=== PATIENT | female | born 1955 | race Caucasian/White ===

== ENCOUNTER 2023-07-09 09:01 | Outpatient (OUT) | payer MEDICARE, SELFPAY ==
[2023-07-09 09:24] LABS: Basophils Absolute Auto 0.1 10^3/uL (0.0-0.1); Basophils Percent Auto 0.7 % (0.2-2.0); Eosinophils Absolute Auto 0.2 10^3/uL (0.0-0.7); Eosinophils Percent Auto 3.1 % (0.9-7.0); Hematocrit 42.7 % (36.0-48.0); Hemoglobin 13.6 g/dL (12.0-16.0); Immature Granulocytes Abs Auto 0.02 10^3/uL (0.00-0.03); Immature Granulocytes Pct Auto 0.3 % (0.0-0.5); Lymphocytes Absolute Auto 1.4 10^3/uL (1.2-3.8); Lymphocytes Percent Auto 20.1 % (20.5-60.0); Mean Corpuscular HGB Conc 31.9 g/dL (29.9-35.2); Mean Corpuscular Hemoglobin 28.8 pg (26.7-34.0); Mean Corpuscular Volume 90.3 fL (81.0-99.0); Mean Platelet Volume 10.4 fL (9.5-13.5); Monocytes Absolute Auto 0.6 10^3/uL (0.3-0.8); Neutrophils Absolute Auto 4.7 10^3/uL (1.4-6.5); Neutrophils Percent Auto 66.8 % (43.0-75.0); Platelet Count 294 10^3/uL (150-450); Red Blood Count 4.73 10^6/uL (4.20-5.40); Red Cell Distribution Width 13.4 % (11.0-15.0)
[2023-07-09 09:47] LABS: Estimated Average Glucose 126 mg/dL
[2023-07-09 10:17] LABS: Alanine Aminotransferase 35 U/L (14-59); Albumin Globulin Ratio 0.8; Albumin Level 3.4 g/dL (3.4-5.0); Alkaline Phosphatase 80 U/L (46-116); Anion Gap 10.4; Aspartate Amino Transferase 21 U/L (15-37); Bilirubin Total 0.5 mg/dL (0.2-1.0); Calcium 9.3 mg/dL (8.5-10.1); Carbon Dioxide 30.3 mmol/L (21.0-32.0); Chloride 103 mmol/L (98-107); Chol HDL Ratio 4.2; Cholesterol 233 mg/dL (<=200); Estimated GFR (African America >60 (>=60); Estimated GFR (Non-African Ame 58 (>=60); Free T3 2.46 pg/mL (2.18-3.98); Globulin 4.2 g/dL; Glucose 130 mg/dL (74-106); HDL Cholesterol 55 mg/dL (40-60); Potassium 3.7 mmol/L (3.5-5.1); Sodium 140 mmol/L (136-145); Thyroid Stimulating Hormone 1.987 uIU/mL (0.358-3.740); Total Protein 7.6 g/dL (6.4-8.2); Triglycerides 108 mg/dL (<=150); VLDL CHOLESTEROL 21.6 mg/dL
[2023-07-10 11:10] LABS: Insulin 12.2 uIU/mL (2.6-24.9)
== END 2023-07-09 09:02 | disposition home or self-care (01) ==
PROVIDERS: PCP Nurse Practitioner Family; Visit Provider Nurse Practitioner Family
DX: R53.83 Other fatigue (principal); I10 Essential (primary) hypertension; E55.9 Vitamin D deficiency, unspecified
CPT/HCPCS: 36415; 80053; 80061; 82306; 83036; 83525; 83540; 84436; 84443; 84481; 85025

== ENCOUNTER 2023-10-29 12:28 | Outpatient (OUT) | payer MEDICARE, SELFPAY ==
--- NOTE | 2023-10-29 12:33 | XR_ITS ---
[facility] [place] [address] Patient Name: TOMASZ ELLIOTT MRN: [id number] date: 1955 Sex: F Assigned Patient Location: [facility] Current Patient Location: [facility] Accession/Order Number: [id number] Exam Date: 10/29/2023 12:40 Report Date: 10/29/2023 15:47 At the request of: JORGE DELONG Procedure: XR lumbar spine min 4V EXAMINATION: XR lumbar spine min 4V HISTORY: low back pain with right sided sciatica COMPARISON: No relevant comparison available. FINDINGS: BONES: Rotatory levoscoliosis centered at L2. Moderate to severe diffuse degenerative spondylosis and facet osteoarthropathy DISC SPACES: Moderate to severe multilevel disc space narrowing with disc collapse L2-L3 PARASPINOUS: Negative. No paraspinous abnormality is seen. OTHER: Extensive vascular calcifications XR/XR lumbar spine min 4V IMPRESSION: Rotatory levoscoliosis with severe degenerative changes Electronically authenticated by: KHUSHBU MACIEL Date: 10/29/2023 15:47
== END 2023-10-29 12:29 | disposition home or self-care (01) ==
LOC: RAD 12:28
PROVIDERS: PCP Nurse Practitioner; Visit Provider Nurse Practitioner
DX: M54.50 Low back pain, unspecified (principal); M54.31 Sciatica, right side; M51.36 Other intervertebral disc degeneration, lumbar region
CPT/HCPCS: 72110

== ENCOUNTER 2025-05-21 09:38 | Outpatient (OUT) | payer MEDICARE, OTHER, SELFPAY ==
--- OUTSIDE RECORDS SUMMARY | 2025-05-20 13:52 | XMS_ITS | Patient Health Record ---
Author Organization [facility] Address [address], [place] [id number] Care Team Providers Care Cotton Factor Name Role Phone macrina Dario Primary Care Provider [phone] Allergies Allergen (clinical drug ingredient) Drug/Non Drug Allergy documented on EMR Reaction Allergy Type Onset Date Status Latex latex (uncoded) rash Allergy ActivebacitracinBacitracinwelt/rashDrug AllergyActive Results Component Value Reference Range Flag Notes Hemoglobin [id number] Reviewed date:01/26/2025 07:27:03 AM Interpretation: Performing Lab:[facility], Phone - [phone], Director - Rosemarie Notes/Report: Clinical Information:SRC: Hemoglobin A1c 6.2 4.8-5.6 % H . Prediabetes: 5.7 - 6.4 Diabetes: >6.4 Glycemic control for adults with diabetes: <7.0 TSH-[id number] Reviewed date:01/26/2025 07:27:03 AM Interpretation: Performing Lab:[facility], Phone - [phone], Director - Rosemarie Notes/Report: Clinical Information:SRC: TSH 3.170 0.450-4.500 uIU/mL CBC With Differential/Platelet-[id number] Reviewed date:01/26/2025 07:27:03 AM Interpretation: Performing Lab:[employer] [facility], Phone - [phone], Director - Rosemarie Notes/Report: Clinical Information:SRC:WBC8.03.4-10.8 x10E3/uLRBC5.183.77-5.28 x10E6/uL Gfxwuyslyf65.811.1-15.9 g/mGPazsazhskk98.234.0-46.6 %ZXG7965-97 fLMCH28.626.6- 33.0 awKIRA27.031.5-35.7 g/dLRDW13.411.7-15.4 %Kshodnzip380358-193 x10E3/uL Rmukuqawdzq56Vfj Estab. %Bnptlg14Vja Estab. %Iyhjzepxf3Kvx Estab. %Vmt9Qnv Estab. %Kbhze0Gri Estab. %Neutrophils (Absolute)5.01.4-7.0 x10E3/uLLymphs (Absolute)1.80.7-3.1 x10E3/uLMonocytes(Absolute)0.70.1-0.9 x10E3/uLEos (Absolute)0.30.0-0.4 x10E3/uLBaso (Absolute)0.10.0-0.2 x10E3/uLImmature Akzvmtinmkkx2Cba Estab. %Immature Grans (Abs)0.00.0-0.1 x10E3/uLVitamin D, 17-Ihcvgpe-[id number] Reviewed date:01/26/2025 07:27:03 AM Interpretation: Performing Lab:[facility] [place] [address] [facility], Phone - [phone], Director - [facility] Notes/Report: Clinical Information:SRC:Vitamin D, 25-Qbnyagj31.030.0-100.0 ng/mLL Vitamin D deficiency has been defined by the Abbott of Medicine and an Endocrine Society practice guideline as a level of serum 25-OH vitamin D less than 20 ng/mL (1,2). The Endocrine Society went on to further define vitamin D insufficiency as a level between 21 and 29 ng/mL (2). 1. IOM (Abbott of Medicine). 2010. Dietary reference intakes for calcium and D. [place]: The National Academies Press. 2. Nakita MF, Paulino NC, Nohemi-Cedric FLOYD, et al. Evaluation, treatment, and prevention of vitamin D deficiency: an Endocrine Society clinical practice guideline. JCEM. 2010; 96(7):1911-30. Lipid Panel-[id number] Reviewed date:01/26/2025 07:27:03 AM Interpretation: Performing Lab:[facility] [address], [place], Phone - [phone], Director - [facility] Notes/Report: Clinical Information:SRC:Cholesterol, Ccfsd607473-513 mg/kWSTjsauspvbomcr1363- 149 mg/dLHHDL Hbdhlmfumww60>39 mg/dLVLDL Cholesterol Lfu715-86 mg/dLHLDL Chol Calc ([facility])2150-99 mg/dLHLDL Calc Comment: Consider evaluating for Familial Hypercholesterolemia(FH), if clinically indicated. Comp. Metabolic Panel ([id number] Reviewed date:01/26/2025 07:27:03 AM Interpretation: Performing Lab:[facility] [place], [address] [facility], [place], Phone - [phone], [facility] Notes/Report: Clinical Information:SRC:Fnewyjn25925-73 mg/gGZSYA725-88 mg/dLCreatinine0.83 0.57-1.00 mg/tOnLXD58>59 mL/min/1.73BUN/Creatinine Tewah0829-43Hxewwf179887-956 mmol/LPotassium4.53.5-5.2 mmol/CBalgzzxp11438-518 mmol/LCarbon Dioxide, Total25 20-29 mmol/LCalcium9.88.7-10.3 mg/dLProtein, Total7.06.0-8.5 g/dLAlbumin4.13.8- 4.8 g/dLGlobulin, Total2.91.5-4.5 g/dLBilirubin, Total0.40.0-1.2 mg/dLAlkaline Wrtqlxszbnh8581-918 IU/LAST (SGOT)240-40 IU/LALT (SGPT)310-32 IU/L Reason For Referral Reason colonoscopy Diagnosis 1 COLON CANCER SCREENI (Z12.11) Referral Organization [facility] Referring Provider First Name Dario Referring Provider Last Name Cola Referring Provider Speciality Physician Referred Provider [facility], [facility] Referred Provider Specialty Gastroentero logy Referral Priority Routine Medications Medication SIG (Take, Route, Frequency, Duration) Notes Start Date End Date Status metFORMIN HCl 500 MG Tablet 1 tablet wit h a meal Orally Once a day; Duration: 90 5ActiveLevothyroxine Sodium 88 MCG Tablet1 tablet in the morning on an empty stomach Orally Once a dayActiveAtorvastatin Calcium 40 MG Tablet1 tablet Orally Once a day; Duration: 90 days5ActiveFurosemide 20 MG Tablet1 tablet Orally Once a dayActiveCarvedilol 25 MG Tablet1 tablet with food Orally Twice a dayActiveVerapamil HCl ER 120 MG Tablet Extended Release1 tablet Orally Once a dayActiveLisinopril-hydroCHLOROthiazide 20-12.5 MG Tablet1 tablet Orally Once a dayActivePotassium Chloride ER 10 MEQ Tablet Extended Release1 tablet with food Orally once a dayActiveUltra HLI86320cz once a dayActiveMeloxicam 15 MG Tablet1 tablet Orally Once a dayActiveAspirin Adult Low Strength 81 MG Tablet Delayed Release1 tablet Orally Once a dayActiveOne A Day Women 50 Plus - Tablet as directed OrallyActiveVitamin D3 50 MCG (1999 [place]) Capsule1 capsule Orally Once a dayActive Social History Sex Assigned At : Social History Observation Description Sex Assigned At Female Social History Social DeterminantsSocial InfoQuestionAnswerNotesPRAPAREDate Completed/Updated: 01/25/2025What is your current housing situation?I have housingAre you worried about losing your housing?NoWhat is the highest level of school that you have finished?High school diploma or GEDWhat is your current work situation?Otherwise unemployed but not seeking work (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 Check all that applyI do not have problems meeting my needsHas lack of transportation kept you from medical appointments, meetings, work or from getting things needed for daily living?NoHow often do you see or talk to people that you care about and feel close to? (For example: talkingto friends on the phone, visiting friends or family, going to caodaism or club meetings)More than 5 times a weekHow stressed are you? Stress is when someone feels tense, nervous, anxious, or can't sleep at nightbecause their mind is troubledA little bitIn the past year have you spent more than 2 nights in a row in a prison, custodial, senior living center, orjuvenile correctional facility?NoAre you a refugee?NoWhat country are you from?[place]Do you feel physically and emotionally safe where you currently live?YesIn the past year, have you been afraid of your partner or ex-partner?NoPRAPARE Score:4 Problems Problem Type SNOMED Code ICD Code Onset Dates Problem Status W/U Status Risk Notes Problem Overweight (278028851) Overweight (E66.3) ActiveconfirmedProblemhypercholesterolemia (disorder) (71460505) Hypercholesteremia (E78.00)ActiveconfirmedProblemNon-smoker (4674385)NONSMOKER (Z78.9)ActiveconfirmedProblemVitamin D deficiency (61443602)VITAMIN D DEFICIENCY (E55.9)ActiveconfirmedProblemHypertension (70339754)HYPERTENSION (I10)Active confirmedProblemHypothyroid (76170787)Hypothyroid (E03.9)Activeconfirmed Vital Signs Heart Rate 76 /min 01/25/2025 Ecdvzvnf56 %01/25/2025lood pressure ivdsmkmws69 mm Hg01/25/2025Weight-kg95.89 kg01/25/20258288Rxkezz19 in01/25/2025lood pressure mm Hg01/25/2025 Zooqtn430.4 lbs01/25/2025BMI36.28 kg/m201/25/2025 Encounters Encounter Location Date Provider Diagnosis [address] [id number] 01/25/2025 Dario Singleton TOBACCO NON-USER Z78 .9 ; PHYSICAL EXAM, ANNUAL Z00.00 ; Overweight E66.3 ; Dietary counseling and surveillance Z71.3 ; NEGATIVE DEPRESSION SCREENING Z13.31 ; Encounter for screening mammogram for malignant neoplasm of breast Z12.31 ; ELEVATED BLOOD PRESSURE READING R03.0 ; Encounter for examination of blood pressure without abnormal findings Z01.30 ; COLON CANCER SCREENING Z12.11 ; HYPERTENSION I10 ; Hypercholesteremia E78.00 ; VITAMIN D DEFICIENCY E55.9 ; SCREENING FOR DIABETES MELLITUS Z13.1 and Hypothyroid E03.[address] [id number] 01/26/2025 Dario Singleton [address] [id number]/19/2025David ColaC. DIFFICILE DIARRHEA A04.72[facility], [place] [id number]/David ColaL[place] - [address], [place] [id number]/David Cola Assessments Encounter Date Diagnosis (ICD Code) Assessment Notes Treatment Notes Treatment Clinical Notes Section Notes 03/08/2025 C. DIFFICILE DIARRHEA (ICD-10 - A04.72) 01/25/2025TOBACCO NON-USER (ICD-10 - Z78.9)Smoking assessment completePatient Education Given01/25/2025PHYSICAL EXAM, ANNUAL (ICD-10 - Z00.00)Patient Education Given01/25/2025Overweight (ICD-10 - E66.3)Learning about healthy weight education providedPatient Education Given01/25/2025Dietary counseling and surveillance (ICD-10 - Z71.3)Patient Education Given01/25/2025NEGATIVE DEPRESSION SCREENING (ICD-10 - Z13.31)Patient Education Given01/25/2025Encounter for screening mammogram for malignant neoplasm of breast (ICD-10 - Z12.31) Patient Education Given01/25/2025ELEVATED BLOOD PRESSURE READING (ICD-10 - R03.0)Patient Education Given01/25/2025Encounter for examination of blood pressure without abnormal findings (ICD-10 - Z01.30)Patient Education Given 01/25/2025OLON CANCER SCREENING (ICD-10 - Z12.11)Patient Education Given 01/25/2025HYPERTENSION (ICD-10 - I10)Patient Education Given01/25/2025 Hypercholesteremia (ICD-10 - E78.00)Patient Education Given01/25/2025VITAMIN D DEFICIENCY (ICD-10 - E55.9)Patient Education Given01/25/2025SCREENING FOR DIABETES MELLITUS (ICD-10 - Z13.1)Patient Education Given01/25/2025Hypothyroid (ICD-10 - E03.9)Patient Education Given01/25/2025OtherPatient education was providedSuicide Risk assessment negative depression screenPatient Education Given Plan Of Treatment Pending Test Test Name Order Date Colonoscopy 01/25/2025 MAMMOGRAM, SCREENING 01/25/2025 C difficile Toxins A+B, [id number] 03/08 Insurance Providers Payer Name Payer Address Payer Phone Subscriber Number Group Number Insured Name Patient Relationship to Insured Coverage Start Date Coverage End Date [facility] [employer] [facility] [address] [address] [place] [phone] [id number] Bing Pepe Self - patient is the insured 5
--- OUTSIDE RECORDS SUMMARY | 2025-05-20 13:56 | XMS_ITS | CCD ---
Author Organization [facility] Care Team Providers Care Roaster Operator Name Role Phone GEORGE, YULISA Attending Unavailable ROSS, YULISA Admitting Unavailable ROSS, YULISA Primary Care Unavailable ROSS, YULISA Attending Unavailable ROSS, YULISA Admitting Unavailable ROSS, YULISA Primary Care Unavailable ROSS, YULISA Consulting Unavailable ROSS, YULISA Consulting Unavailable ROSS, YULISA Attending Unavailable ROSS, YULISA Admitting Unavailable ROSS, YULISA Primary Care Unavailable ROSS, YULISA Consulting Unavailable ROSS, YULISA Attending Unavailable ROSS, YULISA Admitting Unavailable ROSS, YULISA Primary Care Unavailable Amile, Nida L Primary Care Physician Maile, Nida Rendon Attending Unavailable Maile, Nida Rendon Attending Unavailable Maile, Nida L Attending Unavailable Maile, Nida L Attending Unavailable Maile, Nida L Attending Unavailable Maile, Nida L Admitting Unavailable Maile, Nida L Attending Unavailable Maile, Nida L Admitting Unavailable Maile, Nida L Attending Unavailable Maile, Nida L Attending Unavailable Maile, Nida L Attending Unavailable Maile, Nida L Attending Unavailable Malie, Nida L Attending Unavailable Maile, Nida L Attending Unavailable Bety Chung APRN Primary Care Provider Bety Chung APRN Attending Provider Allergies Allergy ClassificationReported Allergen(s)Allergy TypeDate of OnsetReaction(s) Facility (3 sources)bacitracin / neomycin / polymyxin b; Translations: [bacitracin/neomycin/polymyxin B topical]Drug AllergyWeal (disorder)[facility] (4 sources)Latex; Translations: [Latex]Propensity to adverse reactions to gicgtapyd70-13-6453Iguh (disorder)[facility] (1 source)BacitracinDrug Xdfpdkl13-73-0203syrvvObvujvfdbSelect [facility] (1 source)LidocaineDrug Riraouf03-25-1847oudppJgfrpjolwSelect [facility]ty [facility] (1 source)NeomycinDrug Yroijrs89-91-4820ehutfHhvndbevuSelect [facility]ty [facility] (1 source)pramoxineDrug Rghjtgf13-33-9741zqkllDygrlslqzSelect [facility] (1 source)polymyxin BPropensity to adverse bwohfqxcv92-34-8070eqtlaMywonzsad[address] [place] [address] Medications Current Medications MedicationDrug Class(es)DatesSig (Normalized)Sig (Original)acetaminophen 250 mg / ibuprofen 125 mg oral tablet (1 source)Nonsteroidal Anti-inflammatory DrugStart: 71-41-8016gjth 1 tablet by mouth every eight hoursacetaminophen-ibuprofen 250 mg-125 mg oral tablet tab(s), Oral, q8hr, Refill(s) 0 Start Date: 12/04/23 Status: Orderedatorvastatin 40 mg oral tablet (1 source)HMG-CoA Reductase InhibitorStart: 69-24-1160yctg 1 tablet by mouth once dailyAtorvastatin 40 mg tablet Active 40 MG PO Daily April 27, 2025 12:00am Complies with drug therapycarvedilol 25 mg oral tablet (2 sources)alpha-Adrenergic Ria, beta-Adrenergic BlockerStart: 04-27-2025 take 1 tablet by mouth twice daily at mealtimeCarvedilol 25 mg tablet Active 25 MG PO Twice daily April 27, 2025 12:00am must administer with a meal/food Complies with drug therapyStart: 55-08-9315fnfb 1 tablet by mouth twice daily carvedilol 25 mg Tab 25 mg = 1 tab(s), Oral, BID, Refills(s) 0 Start Date: 10/20/23 Status: Orderedcholecalciferol 0.05 mg oral capsule (1 source)Vitamin DStart: 06-88-9573dtte 1 capsule by mouth once daily Cholecalciferol (Vitamin D3) 50 mcg (2,000 unit) capsule Active 50 MCG PO Daily April 27, 2025 12:00am Complies with drug ytsnqyiHtR60 (1 source)Start: 76-66-0616btay 1 tablet by mouth once izjhcVmA80 See Instructions, one tab Oral Daily, Refills(s) 0 Start Date: 12/04/23 Status: Orderedfurosemide 20 mg oral tablet (2 sources)Loop DiureticStart: 95-14-0547pcla 1 tablet by mouth once daily Furosemide 20 mg tablet Active 20 MG PO Daily April 27, 2025 12:00am Complies with drug therapyStart: 45-72-6685hlky 1 tablet by mouth once dailyfurosemide 20 mg Tab 20 mg = 1 tab(s), Oral, Daily, Refills(s) 0 Start Date: 10/20/23 Status: OrderedhydroCHLOROthiazide 12.5 mg / lisinopril 20 mg oral tablet (2 sources)Thiazide Diuretic, Angiotensin Converting Enzyme InhibitorStart: 53-40-7823euid 1 tablet by mouth once dailyLisinopril-Hydrochlorothiazide 20- 12.5 mg tablet Active 1 TAB PO Daily April 27, 2025 12:00am Complies with drug therapyStart: 07-25-7825vqvf 1 tablet by mouth once daily hydrochlorothiazide-lisinopril 12.5 mg-20 mg Tab 1 tab(s), Oral, Daily, Refill(s) 0 Start Date: 10/20/23 Status: Orderedlevothyroxine sodium 0.088 mg oral capsule (2 sources)l-ThyroxineStart: 67-77-3706rhba 1 capsule by mouth once daily Levothyroxine 88 mcg capsule Active 88 MCG PO Daily April 27, 2025 12:00am Complies with drug therapyStart: 15-78-0425gjdk 1 tablet by mouth once daily levothyroxine 88 mcg (0.088 mg) Tab 88 mcg = 1 tab(s), Oral, Daily, Refills(s) 0 Start Date: 10/20/23Status: Orderedmeloxicam 15 mg oral tablet (1 source)Nonsteroidal Anti-inflammatory DrugStart: 11-10-2023 End: 78-07-4396rovn 1 tablet by mouth once dailymeloxicam 15 mg Tab 15 mg = 1 tab(s), Oral, Daily, X 90 day(s), # 90 tab(s), Refills(s) 3, Pharmacy: [facility]/pharmacy #[id number], 156.5, cm, 11/10/23 10:10:00 EDT, Height/Length Dosing, 94.5, kg, 11/10/23 10:10:00 EDT, Weight Dosing Start Date: 11/10/23 Stop Date: 11/04/24 Status: OrderedmethylPREDNISolone 4 mg tab dosepak (1 source)Start: 86-02-3302znpg 1 tablet by mouth oncemethylPREDNISolone 4 mg tab dosepak = 1 packet(s), Oral, Once, as directed on package labeling, # 21 tab(s), Refills(s) 0, Pharmacy: [facility]/pharmacy #[id number], 156, cm, 12/04/23 8:31:00 EDT, Height/Length Dosing, 95.7, kg, 12/04/23 8:31:00 EDT, Weight Dosing Start Date: 12/16/23 Status: OrderedMultivitamin (One-A-Day Essential) tablet (1 source)Start: 63-59-1505gjss 1 tablet by mouth once dailyMultivitamin (One-A-Day Essential) tablet Active 1 TAB PO Daily April 27, 2025 12:00am Complies with drug therapyOne A Day Women 50 Plus (1 source)Start: 64-30-0682Vgq A Day Women 50 Plus Refill(s) 0 Start Date: 12/04/23 Status: Orderedpotassium chloride 10 meq extended release oral tablet (2 sources)Start: 45-95-4244cqce 1 tablet by mouth once dailyPotassium Chloride 10 mEq tablet extended release Active 10 MEQ PO Daily April 27, 2025 12:00am Complies with drug therapyStart: 35-81-0841lxur 1 tablet by mouth once daily Potassium Chloride (Wwy-Hmuf-Mdx 10) 10 mEq oral tablet, extended release 10 mEq = 1 tab(s), Oral, Daily, Refills(s) 0 Start Date: 10/20/23 Status: Ordered simvastatin 40 mg oral tablet (1 source)HMG-CoA Reductase InhibitorStart: 19-03-9917zsfu 1 tablet by mouth once daily in the eveningsimvastatin 40 mg Tab 40 mg = 1 tab(s), Oral, qPM, Refills(s) 0 Start Date: 10/20/23 Status: Bhaxuam15 hr verapamil hydrochloride 120 mg extended release oral capsule (2 sources)Calcium Channel BlockerStart: 50-24-2223scta 1 capsule by mouth once dailyVerapamil 120 mg capsule,ext rel. pellets 24 hr Active 120 MG PO Daily April 27, 2025 12:00am Complies with drug therapyStart: 76-92-9441dtsy 1 capsule by mouth once dailyverapamil 120 mg Cap-ER 120 mg = 1 cap(s), Oral, Daily, Refills(s) 0 Start Date: 10/20/23 Status: Ordered Completed/Discontinued Medications MedicationDrug Class(es)DatesSig (Normalized)Sig (Original)aspirin 81 mg delayed release oral tablet (1 source)Platelet Aggregation Inhibitor, Nonsteroidal Anti-inflammatory Drug Start: 34-64-1031qfseins 81 mg Oral EC Tab 81 mg = 1 tab(s), Oral, BID, Patient states she takes one tab once a day and sometimes twice a day, Refills(s) 0 Start Date: 12/04/23 Status: Ordered Problems Active Problems Problem ClassificationProblemDateDocumented DateEpisodic/ChronicChronic kidney disease (3 sources)Chronic kidney disease stage 3; Translations: [Chronic kidney disease, stage 3 unspecified]Onset: 54-07-1693SxnoyvuUlczxst on above:added per 12/19/2023 query response.linked HTN with CKD per OP [facility]I policy.Diabetes mellitus with complications (4 sources)Other specified diabetes mellitus with diabetic chronic kidney disease; Translations: [OTHER SPECIFIED DM W/DIABETIC CKD]Onset: 11-13-2020 ChronicDiabetes mellitus without complication (2 sources)Diabetes mellitus; Translations: [Type 2 diabetes mellitus without complications]59-40-2019SryoumcOysrpzhhw of lipid metabolism (3 sources)Hypercholesterolemia; Translations: [Pure hypercholesterolemia, unspecified]64-01-8391AsgsekgQqjlsmu on above:added per 12/19/2023 query response.Essential hypertension (3 sources)Hypertensive disorder; Translations: [Essential (primary) hypertension]00-84-8758ZyklbosHznsqdf on above:noted in 10/20/2023 Office Visit Note. added per OP [facility]I policy.Hypertension with complications and secondary hypertension (1 source)Hypertensive chronic kidney disease with stage 1 through stage 4 chronic kidney disease, or unspecified chronic kidney disease; Translations: [HTN CKD W/STAGE 1-4 CKD/UNS CKD]Onset: 74-08-0973YxvisdaCeacaibwidx deficiencies (1 source)Vitamin D gmngmtbnox10-48-8725ZhxaonrHntng connective tissue disease (1 source)Pain in lower ehde20-98-3599VkfujggvMobvn screening for suspected conditions (not mental disorders or infectious disease) (2 sources)Patient encounter status; Translations: [Encounter for screening for malignant neoplasm of colon]60-32-8696DadsroktOoepeerlnnw; intervertebral disc disorders; other back problems (1 source)Lumbago co-occurrent with right-side pzirrtkb64-29-5584ZfddomhfBooqttj disorders (2 sources)Hypothyroidism, unspecified; Translations: [Hypothyroidism]Onset: 157386-56-8742VxzxzkxFmdtspn on above:noted in 10/20/2023 Office Visit Note. added per OP CDI policy.Unclassified (1 source)CHRN KIDNEY DISEASE STG 3 UNSP; Translations: [CHRN KIDNEY DISEASE STG 3 UNSP]Onset: 79-38-5029Jktodzlthifn (2 sources)Patient encounter status; Translations: [Z12.11 - Encounter for screening for malignant neoplasm ofcolon] Past or Other Problems Problem ClassificationProblemDateDocumented DateEpisodic/ChronicImmunizations and screening for infectious disease (4 sources)Encounter for immunization; Translations: [ENCOUNTER FOR IMMUNIZATION]Onset: 49-60-5749Sfswtsuc Results Test NameValueInterpretationReference RangeFacilityProvider Letteron 06-30-2024 Provider LetterProvider Letter June 30, 2024 [place] [address] : 1955 To Whom It May Concern, Please excuse above patient from work. Date of Illness: From: 06/28/2024 To: 07/08/2024 May Return to Work On: 07/09/2024 Sincerely, Family Medicine [address] [address] IxtqeyAjqsdkSt. Charles HospitalProvider LetterProvider Letter June 30, 2024 [place] [address] : 1955 To Whom It May Concern, Please excuse above student from school. Date of Absence: 06/30/2024 May Return to School On: 06/30/2024 Sincerely, [facility] [address] [place] [address] [address] Charles HospitalComment on above:Other Comment: WRONG PATIENTAmbulatory Visit Summaryon 29-48-4751Jjqaumpuxj Visit SummaryAmbulatory Visit Summary TOMASZ PEPE :1955 Visit Date:06/22/2024 Ambulatory Visit Instructions Your Diagnosis Rib pain on right side Anxiety Your Care Team Attending Physician - Nida Saunders Primary Care Physician - Nida Saunders This Is Your Medications List aspirin (aspirin 81 mg Oral EC Tab) carvedilol (carvedilol 25 mg Tab) furosemide (furosemide 20 mg Tab) hydrochlorothiazide-lisinopril (hydrochlorothiazide-lisinopril 12.5 mg-20 mg Tab) levothyroxine (levothyroxine 88 mcg (0.088 mg) Tab) meloxicam (meloxicam 15 mg Tab) multivitamin with minerals (Calcium with Vitamin D and Magnesium oral tablet, chewable) multivitamin with minerals (One A Day Women 50 Plus) potassium chloride (Potassium Chloride (Xxk-Ruxg-Hzi 10) 10 mEq oral tablet, extended release) simvastatin (simvastatin 40 mg Tab) ubiquinone (CoQ10) verapamil (verapamil 120 mg Cap-ER) Procedures Performed None. Discharge Vitals Temperature (Tympanic) 36.8 ???C Heart Rate (Peripheral) 81 Respiratory Rate 18 Blood Pressure 132/80 Height 156.5 cm Height 62 in Weight 93.2 kg Weight 205.471 lb BMI 38.05 What to do next Scheduled Follow-Up Appointments November. 2024 8:00 AM EDT Where: [facility] [place] [address] [place] [address]- Medications What How Much When Why Instructions Unchanged aspirin (aspirin 81 mg Oral EC Tab) 1 Tablets By Mouth 2 times a day Patient states she takes one tab once a day and sometimes twice a day Unchanged carvedilol (carvedilol 25 mg Tab) 1 Tablets By Mouth 2 times a day Unchanged furosemide (furosemide 20 mg Tab) 1 Tablets By Mouth Every day Unchanged hydrochlorothiazide-lisinopril (hydrochlorothiazide-lisinopril 12.5 mg-20 mg Tab) 1 Tablets By Mouth Every day Unchanged levothyroxine (levothyroxine 88 mcg (0.088 mg) Tab) 1 Tablets By Mouth Every day Unchanged meloxicam (meloxicam 15 mg Tab) 1 Tablets By Mouth Every day BMI 38.0- 38.9,adult Non-smoker Duration: 90 Days Unchanged multivitamin with minerals (Calcium with Vitamin D and Magnesium oral tablet, chewable) Chewed 3 times a day Unchanged multivitamin with minerals (One A Day Women 50 Plus) Unchanged potassium chloride (Potassium Chloride (Iam-Xbzx-Vzf 10) 10 mEq oral tablet, extended release) 1 Tablets By Mouth Every day Unchanged simvastatin (simvastatin 40 mg Tab) 1 Tablets By Mouth Once a day (in the evening) Unchanged ubiquinone (CoQ10) See instructions one tab Oral Daily Unchanged verapamil (verapamil 120 mg Cap-ER) 1 Capsules By Mouth Every day Allergies Latex (Hives) Neosporin (Hives) Problems Ongoing - Any problem that you are currently receiving treatment for. Anxiety Benign hypertension with chronic kidney disease, stage III BMI 37.0-37.9, adult Class 1 obesity due to excess calories in adult Class 2 severe obesity with serious comorbidity in adult Fluid level behind tympanic membrane of both ears Hypercholesterolemia Hypertension Hypothyroid Leg pain, lateral Low back pain with right-sided sciatica Rib pain on right side Right hip pain Seasonal allergies Stage 3 chronic kidney disease Vitamin D deficiency Patient Survey You may receive a survey via text or e-mail asking about your office visit. Please share your experience with us by completing your survey. We appreciate your feedback and thank you for choosing us for your care. [facility] Medicine Office/Clinic Noteon [id number] Medicine Office/Clinic NoteFasaint luke[facility] hospital [facility] Office/Clinic Note Chief Complaint Rt Sided Pain HPI Staff Tomasz is a 69 year old female presenting with acute pain right side of ribs Troup rib pop on the 24 when she bent over. Tx'd pain with Tylenol & Ibuprofen. Has been out of work since, would like note to give employer. CHARAN 11 History of Present Illness pt presents today with right rib pain and worsening anxiety Review of Systems PHQ Score Initial Depression Screen Score: 2 SCORE Physical Exam Vitals & Measurements T: 36.8 ???C(Tympanic) HR: 81(Peripheral) RR: 18 BP: 132/80 SpO2: 95% HT: 62 in HT: 156.5 cm WT: 93.2 kg WT: 205.471 lb BMI: 38.05 General: alert, no acute distress ENMT: oral mucosa moist, no pharyngeal erythema or exudate Cardiovascular: regular rate and rhythm, normal peripheral perfusion Respiratory: Lungs CTA, respirations non labored Extremities: no deformity, no trauma Neurological: oriented x 4, LOC appropriate for age, CN II-XII intact, motor strength equal & normal bilaterally, speech normal Assessment/Plan 1. Rib pain on right side (R07.81: Pleurodynia) pt was at grocery store last week and bent down to lift turkey out of freezer and felt a pop. she was in severe pain for a couple days and did not go to work. she is feeling much better now and will return to work. declines x ray at this time. 2. Anxiety (F41.9: Anxiety disorder, unspecified) pt has a lot of personal things going on including her that has been in long term for 8 years is getting out in September. he wants to come back to her home but she does not want him back. she did not like how the lexapro made her feel. will start Buspar. RTC as needed 3. BMI 38.0-38.9,adult (Z68.38: Body mass index [BMI] 38.0-38.9, adult) Orders: busPIRone, 10 mg = 1 tab(s), Oral, TID, # 90 tab(s), Refills(s) 0, Pharmacy: [facility]/pharmacy #[id number], 156.5, cm, 06/22/24 10:23:00 EST, Height/Length Dosing, 93.2, kg, 06/22/24 10:23:00 EST, Weight Dosing Follow-up No qualifying data available Problem List/Past Medical History Ongoing Anxiety Benign hypertension with chronic kidney disease, stage III BMI 37.0-37.9, adult BMI 38.0-38.9,adult Class 1 obesity due to excess calories in adult Class 2 severe obesity with serious comorbidity in adult Fluid level behind tympanic membrane of both ears Hypercholesterolemia Hypertension Hypothyroid Leg pain, lateral Low back pain with right-sided sciatica Rib pain on right side Right hip pain Seasonal allergies Stage 3 chronic kidney disease Vitamin D deficiency Historical No qualifying data Procedure/Surgical History None. Medications aspirin 81 mg Oral EC Tab, 81 mg= 1 tab(s), Oral, BID busPIRone 10 mg Tab, 10 mg= 1 tab(s), Oral, TID Calcium with Vitamin D and Magnesium oral tablet, chewable, Chewed, TID carvedilol 25 mg Tab, 25 mg= 1 tab(s), Oral, BID CoQ10, See Instructions furosemide 20 mg Tab, 20 mg= 1 tab(s), Oral, Daily, 1 refills hydrochlorothiazide-lisinopril 12.5 mg-20 mg Tab, 1 tab(s), Oral, Daily levothyroxine 88 mcg (0.088 mg) Tab, 88 mcg= 1 tab(s), Oral, Daily meloxicam 15 mg Tab, 15 mg= 1 tab(s), Oral, Daily, 3 refills One A Day Women 50 Plus Potassium Chloride (Tfb-Eewj-Hks 10) 10 mEq oral tablet, extended release, 10 mEq= 1 tab(s), Oral, Daily simvastatin 40 mg Tab, 40 mg= 1 tab(s), Oral, qPM, 1 refills verapamil 120 mg Cap-ER, 120 mg= 1 cap(s), Oral, Daily Allergies Latex (Hives) Neosporin (Hives) Social History Alcohol - Low Risk, 12/04/2023 Current. Beer, Wine, Liquor. 1-2 times per year., 06/22/2024 Substance Abuse - Denies Substance Abuse, 12/04/2023 Never., 06/22/2024 Tobacco - No Risk, 12/04/2023 Never (less than 100 in lifetime) Tobacco Use:. Never Smokeless Tobacco Use:. Household tobacco concerns: No. Yes, 06/22/2024 Family History Diabetes mellitus type 2: Mother and Sister. Hypertension: Mother, Father and Sister. Immunizations Vaccine Date Status influenza virus vaccine, inactivated 07/09/2023 Recorded influenza virus vaccine, inactivated 05/08/2022 Recorded SARS-CoV-2 (COVID-19) mRNAMUL.[id number] 05/08/2022 Recorded SARS-CoV-2 (COVID-19) mRNA BNT-162b2 vax 07/18/2021 Recorded SARS-CoV-2 (COVID-19) mRNA BNT-162b2 vax 12/04/2020 Recorded SARS-CoV-2 (COVID-19) mRNA BNT-162b2 vax 11/13/2020 Recorded influenza virus vaccine, inactivated 04/28/2020 Recorded pneumococcal 13-valent vaccine 09/28/2019 Recorded influenza virus vaccine, inactivated 06/06/2019 Recorded influenza virus vaccine, inactivated 05/31/2018 Recorded influenza virus vaccine, inactivated 06/06/[address] Charles HospitalComment on above:Result Comment: Electronically Signed By: Nida Saunders\.br\Date and Time Signed: 06/22/24 10:54 ESTProvider Letteron [id number] LetterProvider Letter June 22, [address] [place] [id number] : 1955 To Whom It May Concern, Please excuse above patient from work due to medical Date of Illness: From: _06-14-24 To: _06-23-24 May Return to Work On:06-28-24 Restrictions: _ Comments: _ Sincerely, [place] [address] XjssagGvuabmDoctors Hospital Medicine Office/Clinic Noteon 10-29-2931Lkzwcs Medicine Office/Clinic NoteFami Medicine Office/Clinic Note Chief Complaint Dizzy Spells HPI Staff Pt presents today due to dizzy spells. Started last week, unable to get in to our office at that time. Has since then subsided. Had upset stomach & diarrhea also. Thought it may have been something she ate. History of Present Illness pt presents today for dizziness Review of Systems PHQ Score Initial Depression Screen Score: 0 SCORE Physical Exam Vitals & Measurements T: 37.1 ?C(Oral) HR: 79(Peripheral) RR: 16 BP: 136/80 SpO2: 97% HT: 62 in HT: 156.5 cm WT: 92 kg WT: 202.4 lb BMI: 37.56 General: alert, no acute distress ENMT: oral mucosa moist, no pharyngeal erythema or exudate, KEVIN TM full of fluid, canals dry and flaky Cardiovascular: regular rate and rhythm, normal peripheral perfusion Respiratory: Lungs CTA, respirations non labored Extremities: no deformity, no trauma Neurological: oriented x 4, LOC appropriate for age, CN II-XII intact, motor strength equal & normal bilaterally, speech normal Assessment/Plan 1. Seasonal allergies (J30.2: Other seasonal allergic rhinitis) allergies are flared up. ear canals are pink, dry and flaky. KEVIN TM full of fluid. kenalog given 2. Fluid level behind tympanic membrane of both ears (H65.93: Unspecified nonsuppurative otitis media, bilateral) KEVIN TM full of fluid. will give kenalog in office today 3. Non-smoker (Z78.9: Other specified health status) continue not smoking 4. BMI 37.0-37.9, adult (Z68.37: Body mass index [BMI] 37.0-37.9, adult) BMI education given 5. Class 2 severe obesity with serious comorbidity in adult (E66.01: Morbid (severe) obesity due toexcess calories) see above Follow-up No qualifying data available Problem List/Past Medical History Ongoing Benign hypertension with chronic kidney disease, stage III BMI 37.0-37.9, adult Class 1 obesity due to excess calories in adult Class 2 severe obesity with serious comorbidity in adult Fluid level behind tympanic membrane of both ears Hypercholesterolemia Hypertension Hypothyroid Leg pain, lateral Low back pain with right-sided sciatica Right hip pain Seasonal allergies Stage 3 chronic kidney disease Vitamin D deficiency Historical No qualifying data Procedure/Surgical History None. Medications aspirin 81 mg Oral EC Tab, 81 mg= 1 tab(s), Oral, BID carvedilol 25 mg Tab, 25 mg= 1 tab(s), Oral, BID CoQ10, See Instructions furosemide 20 mg Tab, 20 mg= 1 tab(s), Oral, Daily, 1 refills hydrochlorothiazide-lisinopril 12.5 mg-20 mg Tab, 1 tab(s), Oral, Daily levothyroxine 88 mcg (0.088 mg) Tab, 88 mcg= 1 tab(s), Oral, Daily meloxicam 15 mg Tab, 15 mg= 1 tab(s), Oral, Daily, 3 refills One A Day Women 50 Plus Potassium Chloride (Ccr-Uuzo-Kua 10) 10 mEq oral tablet, extended release, 10 mEq= 1 tab(s), Oral, Daily simvastatin 40 mg Tab, 40 mg= 1 tab(s), Oral, qPM, 1 refills verapamil 120 mg Cap-ER, 120 mg= 1 cap(s), Oral, Daily Allergies Latex (Hives) Neosporin (Hives) Social History Alcohol - Low Risk, 12/04/2023 Current, Beer, Wine, Liquor, 1-2 times per year, 1 drinks/episode average. 2.00 drinks/episode maximum. Previous treatment: None. Alcohol use interferes with work or home: No. Drinks more than intended: No. Others hurt by drinking: No. Ready to change: No. Household alcohol concerns: No., 12/04/2023 Substance Abuse - Denies Substance Abuse, 12/04/2023 Tobacco - No Risk, 12/04/2023 Never (less than 100 in lifetime) Tobacco Use:. Never Smokeless Tobacco Use:. Household tobacco concerns: No. Yes, 03/15/2024 Family History Diabetes mellitus type 2: Mother and Sister. Hypertension: Mother, Father and Sister. Immunizations Vaccine Date Status influenza virus vaccine, inactivated 07/09/2023 Recorded influenza virus vaccine, inactivated 05/08/2022 Recorded SARS-CoV-2 (COVID-19) [id number].[id number] 05/08/2022 Recorded SARS-CoV-2 (COVID-19) mRNA BNT-162b2 vax 07/18/2021 Recorded SARS-CoV-2 (COVID-19) mRNA BNT-162b2 vax 12/04/2020 Recorded SARS-CoV-2 (COVID-19) mRNA BNT-162b2 vax 11/13/2020 Recorded influenza virus vaccine, inactivated 04/28/2020 Recorded pneumococcal 13-valent vaccine 09/28/2019 Recorded influenza virus vaccine, inactivated 06/06/2019 Recorded influenza virus vaccine, inactivated 05/31/2018 Recorded influenza virus vaccine, inactivated 06/06/2017 RecordedNoSt. Charles HospitalComment on above:Result Comment: Electronically Signed By: Nida Saunders\.br\Date and Time Signed: 03/15/24 15:36 EDTProvider Letteron [id number] LetterProvider Letter March 15, [address] [place] [id number] : 1955 To Whom It May Concern, Please excuse above patient from work. Date of Appointment: 03/15/2024 May Return to Work On: 03/16/2024 Restrictions: None. Comments: Patient was seen and treated for symptoms in office today. Sincerely, Family Medicine [address] [address] [address] [facility] HospitalPre-Visit Planningon [id number]-Visit PlanningPre-Visit Planning From: Mague Landa To: Nida Saunders; Sent: 12/19/2023 15:58:45 EDT Subject: Pre-Visit Planning Due Date/Time: 12/19/2023 15:58:00 EDT Caller Name: TOMASZ PEPE; Caller Number: H Ky Nida. During a pre-visit planning chart review, I noted the following documentation in the medical recordindicates that this patient had BMI of 39.32 on 12/04/2023 and a diagnosis of Hypertension noted onCurrent Problem List. If BMI during this current visit is greater than 35: Based on your medical judgment, can you further clarify the following? I can update the Chronic Problem List with your response if you would like. -Morbid obesity (please also include additional diagnosis to reflect current BMI) -Class 2 severe obesity with serious comorbidity in adult (please also include additional diagnosisto reflect current BMI) -Other (please specify): In responding to this request, please exercise your independent professional judgment. The fact that a question is asked does not imply that any particular answer is desired or expected. If you have any questions, please feel free to contact me per TEAMS or . Thank you andhave a great weekend! Mague Landa LPN From: Nida Saunders To: Taylor Landabridgette Alexander; Sent: 01/21/2024 09:49:44 EDT Subject: RE: Pre-Visit Planning Caller Name: TOMASZ PEPE; Caller Number: H Class 2 severe obesity with serious comorbidity-[id number] [facility] Medicine Office/Clinic Noteon 01-05-2024 Family Medicine Office/Clinic NoteHPI Staff Tomasz is a 68 year old female presenting for pain Pain characteristics: Pain location: Right Hip Pain: 09/27 while working 02/27 Pt is here today states continues to have right hip pain she is unable to do her job has been off work for the past week. She hasn't taken any ibuprofen for last few days due to being at home and resting hip pain isn't as bad. Pt states the job she does she continuously twisting at the waist, push pedal with right leg, reaching to left and grabbing things. She isn't able to sit any other way. Sheis unable to do this job any other way. Work has asked her to get a note from the doctor that she can't do this job. She has asked to do something else. With working this job pain was so bad she was having a hard time even walking, now that she has had time of and rested she is walking better. History of Present Illness pt presents today for follow up on hip pain Review of Systems PHQ Score Initial Depression Screen Score: 0 SCORE Physical Exam Vitals & Measurements HR: 80(Peripheral) RR: 18 BP: 130/80 HT: 62 in HT: 156.5 cm WT: 93.5 kg WT: 205.7 lb BMI: 38.18 General: alert, no acute distress ENMT: oral mucosa moist, no pharyngeal erythema or exudate Cardiovascular: regular rate and rhythm, normal peripheral perfusion Respiratory: Lungs CTA, respirations non labored Extremities: no deformity, no trauma Neurological: oriented x 4, LOC appropriate for age, CN II-XII intact, motor strength equal & normal bilaterally, speech normal Assessment/Plan 1. Right hip pain (M25.551: Pain in right hip) pt presents today for right hip pain. she was able to stay off of her job for a week and the pain improved tremendously. Is requesting a letter for work to move her to a different position. refills sent letter provided. RTC as needed 2. BMI 38.0-38.9,adult (Z68.38: Body mass index [BMI] 38.0-38.9, adult) BMI education complete 3. Non-smoker (Z78.9: Other specified health status) continue not smoking Follow-up No qualifying data available Problem List/Past Medical History Ongoing Benign hypertension with chronic kidney disease, stage III Hypercholesterolemia Hypertension Hypothyroid Leg pain, lateral Low back pain with right-sided sciatica Right hip pain Stage 3 chronic kidney disease Vitamin D deficiency Historical No qualifying data Procedure/Surgical History None. Medications acetaminophen-ibuprofen 250 mg-125 mg oral tablet, Oral, q8hr aspirin 81 mg Oral EC Tab, 81 mg= 1 tab(s), Oral, BID carvedilol 25 mg Tab, 25 mg= 1 tab(s), Oral, BID CoQ10, See Instructions furosemide 20 mg Tab, 20 mg= 1 tab(s), Oral, Daily, 1 refills hydrochlorothiazide-lisinopril 12.5 mg-20 mg Tab, 1 tab(s), Oral, Daily levothyroxine 88 mcg (0.088 mg) Tab, 88 mcg= 1 tab(s), Oral, Daily meloxicam 15 mg Tab, 15 mg= 1 tab(s), Oral, Daily, 3 refills One A Day Women 50 Plus Potassium Chloride (Tzo-Dcjo-Bja 10) 10 mEq oral tablet, extended release, 10 mEq= 1 tab(s), Oral, Daily simvastatin 40 mg Tab, 40 mg= 1 tab(s), Oral, qPM, 1 refills verapamil 120 mg Cap-ER, 120 mg= 1 cap(s), Oral, Daily Allergies Latex (Hives) Neosporin (Hives) Social History Alcohol - Low Risk, 12/04/2023 Current, Beer, Wine, Liquor, 1-2 times per year, 1 drinks/episode average. 2.00 drinks/episode maximum. Previous treatment: None. Alcohol use interferes with work or home: No. Drinks more than intended: No. Others hurt by drinking: No. Ready to change: No. Household alcohol concerns: No., 12/04/2023 Substance Abuse - Denies Substance Abuse, 12/04/2023 Tobacco - No Risk, 12/04/2023 Never (less than 100 in lifetime) Tobacco Use:. Never Smokeless Tobacco Use:. Household tobacco concerns: No., 01/05/2024 Family History Diabetes mellitus type 2: Mother and Sister. Hypertension: Mother, Father and Sister. Immunizations Vaccine Date Status influenza virus vaccine, inactivated 07/09/2023 Recorded influenza virus vaccine, inactivated 05/08/2022 Recorded SARS-CoV-2 (COVID-19) [id number] 05/08/2022 Recorded SARS-CoV-2 (COVID-19) mRNA BNT-162b2 vax 07/18/2021 Recorded SARS-CoV-2 (COVID-19) mRNA BNT-162b2 vax 12/04/2020 Recorded SARS-CoV-2 (COVID-19) mRNA BNT-162b2 vax 11/13/2020 Recorded influenza virus vaccine, inactivated 04/28/2020 Recorded pneumococcal 13-valent vaccine 09/28/2019 Recorded influenza virus vaccine, inactivated 06/06/2019 Recorded influenza virus vaccine, inactivated 05/31/2018 Recorded influenza virus vaccine, inactivated 06/06/2017 RecordedNoSt. Charles HospitalComment on above:Result Comment: Electronically Signed By: Nida Saunders\.br\Date and Time Signed: 01/05/24 10:56 EDTProvider Letteron [id number] Letter [address] [place] [address] January 05, 20[address] PEPE [address] [place] [id number] : 1955 To Whom It May Concern, Please consider moving the above named patient off of the [employer] job. The repetitive pushingof the pedal and twisting at the waist is causing severe pain to her right hip. If you have any questions regarding this request, please do not hesitate to call my office. Thank you. Sincerely, EDISON Rivero[facility] HospitalAmbulatory Visit Summaryon [id number] Visit Summary TOMASZ PEPE :1955 Visit Date:12/22/2023 Ambulatory Visit Instructions Your Diagnosis Benign hypertension with chronic kidney disease, stage III Stage 3 chronic kidney disease Hypercholesterolemia BMI 38.0-38.9,adult Non-smoker Hypothyroid, Hypothyroid Vitamin D deficiency Low back pain with right-sided sciatica Your Care Team Attending Physician - Nida Saunders Primary Care Physician - Nida Saunders This Is Your Medications List acetaminophen-ibuprofen (acetaminophen-ibuprofen 250 mg-125 mg oral tablet) aspirin (aspirin 81 mg Oral EC Tab) carvedilol (carvedilol 25 mg Tab) furosemide (furosemide 20 mg Tab) hydrochlorothiazide-lisinopril (hydrochlorothiazide-lisinopril 12.5 mg-20 mg Tab) levothyroxine (levothyroxine 88 mcg (0.088 mg) Tab) meloxicam (meloxicam 15 mg Tab) methylPREDNISolone (methylPREDNISolone 4 mg tab dosepak) multivitamin with minerals (One A Day Women 50 Plus) potassium chloride (Potassium Chloride (Ckc-Lkqd-Lyk 10) 10 mEq oral tablet, extended release) simvastatin (simvastatin 40 mg Tab) ubiquinone (CoQ10) verapamil (verapamil 120 mg Cap-ER) Procedures Performed None. Discharge Vitals Heart Rate (Peripheral) 86 Respiratory Rate 18 Blood Pressure 128/74 Height 156.5 cm Height 62 in Weight 94.2 kg Weight 207.24 lb BMI 38.46 What to do next Scheduled Follow-Up Appointments November. 2024 8:00 AM EDT Where: [facility] HospitalCHEMISTRYOrdered By: SYSTEM SYSTEM on [id number] D3 [Mass/Vol]37.1 ng/hDGyzjyy32.0 - 100.0 ng/mLRemisol ChemAlbumin [Mass/Vol]3.8 g/dLNormal3.3 - 5.0 gm/dLRemisol ChemAlbumin/Globulin [Mass ratio]1.3 {ratio} Normal1.1 - 2.2Remisol ChemALP [Catalytic activity/Vol]68 [iU]/vGxgdgb28 - 98 Int._Unit/LRemisol ChemALT No additional P-5'-P [Catalytic activity/Vol]26 [iU]/dNormal6 - 46 Int._Unit/LRemisol ChemAnion gap [Moles/Vol]11 mmol/LNormal6 - 16 mEq/LRemisol ChemAST [Catalytic activity/Vol]21 [iU]/dNormal5 - 43 Int._Unit/LRemisol ChemBilirubin [Mass/Vol]0.4 mg/dLNormal0.0 - 1.1 mg/dLRemisol ChemCalcium [Mass/Vol]9.2 mg/dLNormal8.9 - 11.1 mg/dLRemisol ChemChloride [Moles/Vol]105 mmol/HDdwnql071 - 111 mmol/LRemisol ChemCholesterol [Mass/Vol]167 mg/kOKljmxw248 - 200 mg/dLRemisol ChemCholesterol in HDL [Mass/Vol]46 mg/dL Invalid Interpretation CodeRemisol ChemComment on above:Result Comment: '>= 60 LOW RISK' '<= 40 HIGH RISK'Cholesterol in LDL [Mass/Vol]100 mg/dLNormal<=129mg/dLRemisol ChemCholesterol in VLDL [Mass/Vol]32 mg/dLNormal7 - 40 mg/dLRemisol ChemCO2 [Moles/Vol]29 mmol/ZVzxqwm95 - 31 mmol/LRemisol ChemCreatinine [Mass/Vol]0.8 mg/dLNormal0.5 - 1.3 mg/dLRemisol BalljTMB47 mL/min/1.73 h3Lxtpeo>=59mL/min/1.73 v7Ugjvoca ChemGlobulin (S) [Mass/Vol]3.0 g/dLNormal1.4 - 4.0 gm/dLRemisol Chem Glucose [Mass/Vol]125 mg/zYLsfprf03 - 199 mg/dLRemisol ChemPotassium [Moles/Vol] 4.0 mmol/LNormal3.5 - 5.3 mmol/LRemisol ChemProtein [Mass/Vol]6.8 g/dLNormal6.0 - 7.8 gm/dLRemisol ChemSodium [Moles/Vol]141 mmol/CWkehhm541 - 145 mmol/LRemisol ChemTriglyceride [Mass/Vol]162 mg/dLHigh<=149mg/dLRemisol ChemTSH Qn1.02 m[IU]/LNormal0.34 - 5.60 mcIU/mLRemisol ChemUrea nitrogen [Mass/Vol]20 mg/dL Normal5 - 21 mg/dLRemisol ChemUrea nitrogen/Creatinine [Mass ratio]25 mg/mgHigh 10 - 20Remisol ChemCMPon [id number] [Mass/Vol]3.8 g/dLNormal3.3-5.0Tr[facility] Medical CenterComment on above:Performed By: #### [id number] #### [facility] [address] [place] [place], [place] [address]Ifkpddf/Globulin (S) [Mass conc ratio]1.5Nkjnam6.1-2.2FSelect Medical Cleveland Clinic Rehabilitation Hospital, AvonComment on above:Performed By: #### [id number] #### [facility] [address], [place] [address]EJG [Catalytic activity/Vol]68 Int._Unit/JJvwlmu49-80NqdhelTrumbull Regional Medical CenterComment on above:Performed By: #### [id number] #### [facility] [address] [place], [place] [address]RVF No additional P-5'-P [Catalytic activity/Vol]26 Int._Unit/L Normal6-46Tr[facility] Regional Medical CenterComment on above:Performed By: #### [id number] #### [facility] [address], [place] [address]Hessy gap [Moles/Vol]11 mmol/LNormal6-16Tr[facility] Regional Medical CenterComment on above:Performed By: #### [id number] #### [facility] [address], [place] [address]TGW [Catalytic activity/Vol]21 Int._Unit/LNormal5-43Tr[facility] Regional Medical CenterComment on above:Performed By: #### [id number] #### [facility] [address] [place], [place] [address]Wuijsxteq [Mass/Vol]0.4 mg/dLNormal0.0-1.1FSelect Medical [facility] Clinic Rehabilitation Hospital, AvonComment on above:Performed By: #### [id number] #### [facility] [address], [place] [address]Duaujbx [Mass/Vol]9.2 mg/dLNormal8.9-11.1FSelect Medical [facility] Clinic Rehabilitation Hospital, AvonComment on above:Performed By: #### [id number] #### [facility] [address], [place] [address]Xroguofe [Moles/Vol]105 mmol/COktrsw043-108QgjnwuTrumbull Regional Medical CenterComment on above:Performed By: #### [id number] #### [facility] [address], [place] [address]JP5 [Moles/Vol]29 mmol/GFeqsnb34-97JtkbsvTrumbull Regional Medical Center Comment on above:Performed By: #### [id number] #### [facility] [address], [place] [address]Neddzkctgq [Mass/Vol]0.8 mg/dLNormal0.5-1.3FSelect Medical [facility] Clinic Rehabilitation Hospital, AvonComment on above:Performed By: #### [id number] #### [facility] [address] [place], [place] [address]Rgbtcyud (S) [Mass/Vol]3.0 g/dLNormal1.4-4.0Tr[facility] Regional Medical CenterComment on above:Performed By: #### [id number] #### [facility] [address], [place] [address]Eoxyjtq [Mass/Vol]125 mg/fBWwmpml83-939CmcgeiTrumbull Regional Medical CenterComment on above:Performed By: #### [id number] #### [facility] [address], [place] [address]Afakfsgph [Moles/Vol]4.0 mmol/LNormal3.5-5.3FSelect Medical [facility] Clinic Rehabilitation Hospital, AvonComment on above:Performed By: #### [id number] #### [facility] [address], [place] [address]Nsfnthg [Mass/Vol]6.8 g/dLNormal6.0-7.8Tr[facility] Regional Medical CenterComment on above:Performed By: #### [id number] #### [facility] [address], [place] [address]Auepum [Moles/Vol]141 mmol/DGpyibo323-915IasuymTrumbull Regional Medical CenterComment on above:Performed By: #### [id number] #### [facility] [address], [place] [address]Ainb nitrogen [Mass/Vol]20 mg/dLNormal5-21Tr[facility] Regional Medical CenterComment on above:Performed By: #### [id number] #### [facility] [address], [place] [address]Ugjs nitrogen/Creatinine [Mass ratio]25 No QmyaoJdlj58-97OaentsTrumbull Regional Medical CenterComment on above:Performed By: #### [id number] #### [facility] [address], [place] [address]Kowknu Medicine Office/Clinic Noteon [id number] Medicine Office/Clinic NoteHPI Staff Tomasz is a 68 year old presenting to present chronic conditions labs 07/09/23 TSH 1.987 Pt continues to have right hip pain, states she does have a new Rx for methylprednisolone Dosepak she hasn't taken yet. She has taken 2 previous doses of this and it works well when she is taking it but once done pain returns. Took Tylenol today. History of Present Illness pt presents today wanting to discuss her chronic conditions and medication Review of Systems PHQ Score Initial Depression Screen Score: 0 SCORE Physical Exam Vitals & Measurements HR: 86(Peripheral) RR: 18 BP: 128/74 SpO2: 98% HT: 62 in HT: 156.5 cm WT: 94.2 kg WT: 207.24 lb BMI: 38.46 General: alert, no acute distress ENMT: oral mucosa moist, no pharyngeal erythema or exudate Cardiovascular: regular rate and rhythm, normal peripheral perfusion Respiratory: Lungs CTA, respirations non labored Extremities: no deformity, no trauma Neurological: oriented x 4, LOC appropriate for age, CN II-XII intact, motor strength equal & normal bilaterally, speech normal Assessment/Plan 1. Benign hypertension with chronic kidney disease, stage III (I12.9: Hypertensive chronic kidney disease with stage 1 through stage 4 chronic kidney disease, or unspecified chronic kidney disease) will check labs in office today. BP at goal . will continue current doses of medication. At this time we will continue current medications. will notify her if we need to make any changes according tolab work. RTC as needed. Ordered: Comprehensive Metabolic Panel Lipid Panel Thyroid Stimulating Hormone Vitamin D 25 Hydroxy 2. Stage 3 chronic kidney disease (N18.30: Chronic kidney disease, stage 3 unspecified) see abpve Ordered: Comprehensive Metabolic Panel Lipid Panel Thyroid Stimulating Hormone Vitamin D 25 Hydroxy 3. Hypercholesterolemia (E78.00: Pure hypercholesterolemia, unspecified) will check cholesterol in office today Ordered: Comprehensive Metabolic Panel Lipid Panel Thyroid Stimulating Hormone Vitamin D 25 Hydroxy 4. BMI 38.0-38.9,adult (Z68.38: Body mass index [BMI] 38.0-38.9, adult) BMI education complete Ordered: Comprehensive Metabolic Panel Lipid Panel Thyroid Stimulating Hormone Vitamin D 25 Hydroxy 5. Non-smoker (Z78.9: Other specified health status) continue not smoking Ordered: Comprehensive Metabolic Panel Lipid Panel Thyroid Stimulating Hormone Vitamin D 25 Hydroxy 6. Hypothyroid, (E03.9: Hypothyroidism, unspecified)Hypothyroid Will check TSH in office today Ordered: Comprehensive Metabolic Panel Lipid Panel Thyroid Stimulating Hormone Vitamin D 25 Hydroxy 7. Vitamin D deficiency (E55.9: Vitamin D deficiency, unspecified) pt continues taking vitamin D supplement. Vitamin D drawn in office today Ordered: Comprehensive Metabolic Panel Lipid Panel Thyroid Stimulating Hormone Vitamin D 25 Hydroxy 8. Low back pain with right-sided sciatica (M54.41: Lumbago with sciatica, right side) offered pain management or spine ortho referral but she does not want to go that route at this time. she states if I just retired and rested my back pain would be better. Follow-up No qualifying data available Problem List/Past Medical History Ongoing Benign hypertension with chronic kidney disease, stage III Hypercholesterolemia Hypertension Hypothyroid Leg pain, lateral Low back pain with right-sided sciatica Stage 3 chronic kidney disease Vitamin D deficiency Historical No qualifying data Procedure/Surgical History None. Medications acetaminophen-ibuprofen 250 mg-125 mg oral tablet, Oral, q8hr aspirin 81 mg Oral EC Tab, 81 mg= 1 tab(s), Oral, BID carvedilol 25 mg Tab, 25 mg= 1 tab(s), Oral, BID CoQ10, See Instructions furosemide 20 mg Tab, 20 mg= 1 tab(s), Oral, Daily hydrochlorothiazide-lisinopril 12.5 mg-20 mg Tab, 1 tab(s), Oral, Daily levothyroxine 88 mcg (0.088 mg) Tab, 88 mcg= 1 tab(s), Oral, Daily meloxicam 15 mg Tab, 15 mg= 1 tab(s), Oral, Daily, 3 refills, Investigating methylPREDNISolone 4 mg tab dosepak, 1 packet(s), Oral, Once, Not taking: pt hasn't started it yet One A Day Women 50 Plus Potassium Chloride (Huk-Etyz-Xbj 10) 10 mEq oral tablet, extended release, 10 mEq= 1 tab(s), Oral, Daily simvastatin 40 mg Tab, 40 mg= 1 tab(s), Oral, qPM verapamil 120 mg Cap-ER, 120 mg= 1 cap(s), Oral, Daily Allergies Latex (Hives) Neosporin (Hives) Social History Alcohol - Low Risk, 12/04/2023 Current, Beer, Wine, Liquor, 1-2 times per year, 1 drinks/episode average. 2.00 drinks/episode maximum. Previous treatment: None. Alcohol use interferes with work or home: No. Drinks more than intended: No. Others hurt by drinking: No. Ready to change: No. Household alcohol concerns: No., 12/04/2023 Substance Abuse - Denies Substance Abuse, 12/04/2023 Tobacco - No Risk, 12/04/2023 Never (less than 100 in lifetime) Tobacco Use:. Never Smokeless Tobacco Use:. Househol (more content not included)...NormalTrumbull Regional Medical CenterComment on above:Result Comment: Electronically Signed By: Nida Saunders\.trell\Date and Time Signed: 12/22/23 10:49 EDTLipid Panelon 19-01-4690Dpcjotuodfk [Mass/Vol]167 mg/uPOjemno151-178StktjwTrumbull Regional Medical CenterComment on above: Performed By: #### [id number] #### [facility] [address], [place] [address]Efyssmaudyr in HDL [Mass/Vol]46 mg/dLInvalid Interpretation CodeTrumbull Regional Medical CenterComment on above:Result Comment: '>= 60 LOW RISK' '<= 40 HIGH RISK'Performed By: #### [id number] #### [facility] [address] [place], [place] [address]Phisoqpalux in LDL [Mass/Vol]100 mg/dLNormal<=129Tr[facility] Regional Medical CenterComment on above:Performed By: #### [id number] #### [facility] [address] [place], [place] [address]Ngxakujydtz in VLDL [Mass/Vol]32 mg/dLNormal7-40Tr[facility] Regional Medical CenterComment on above:Performed By: #### [id number] #### [facility] [address] [place], [place] [address]Enpzrsfvaltq [Mass/Vol]162 mg/dLHigh<=149Tr[facility]ull Regional Medical CenterComment on above:Performed By: #### [id number] #### [facility] [address] [place], [place] [address]Ecz-Bexbc Planningon 19-36-4467Jtp-Visit Planning From: Mague Landa To: Nida Saunders; Sent: 12/19/2023 15:51:39 EDT Subject: Pre-Visit Planning Due Date/Time: 12/19/2023 15:50:00 EDT Caller Name: TOMASZ PEPE; Caller Number: H Isak Alva. During a pre-visit planning chart review, I noted the following documentation in the medical record: Glomerular filtration rate (GFR): =58 on 07/09/2023. *No other lab results noted in [employer] to monitor trend. Based on your medical judgment, can you please clarify which, if any, of the following conditions are present? I can update the problem list with your specified response if you would like. -Chronic Kidney Disease Stage 3, unspecified (GFR 30-59) -Other (please specify): -Unable to determine In responding to this request, please exercise your independent professional judgment. The fact that a question is asked does not imply that any particular answer is desired or expected. If you have any questions, please feel free to contact me at extension [phone]. Thank you! Mague Landa LPN From: Nida Saunders To: Mague Landa Catherine; Sent: 12/22/2023 08:59:13 EDT Subject: RE: Pre-Visit Planning Caller Name: TOMASZ PEPE; Caller Number: H Chronic kidney disease stage [id number] [facility] HospitalPre[facility] Planning From: Taylor Landaissa Catherine To: Nida Saunders; Sent: 12/19/2023 15:44:59 EDT Subject: Pre-Visit Planning Due Date/Time: 12/19/2023 15:44:00 EDT Caller Name: TOMASZ PEPE; Caller Number: H Isak Alva. During a pre-visit planning chart review, I noted the following medication documented in the medical record: simvastatin 40 mg daily. 07/09/2023 Labs (page 2): Based on your medical judgement, can you please indicate what condition indicates the necessity of the medication? I can update the problem list with your specified response if you would like. -Hypercholesterolemia -Additional comments: In responding to this request, please exercise your independent professional judgement. The fact that a question is asked does not imply that any particular answer is desired or expected. If you have any questions, please feel free to contact me at extension [phone]. Thank you! Mgaue Landa LPN From: Nida Saunders To: Mague Landa; Sent: 12/22/2023 08:58:26 EDT Subject: RE: Pre-Visit Planning Caller Name: TOMASZ PEPE; Caller Number: H [id number] [facility] HospitalTSHon [id number] Qn1.02 m[IU]/LNormal0.34-5.60Tr[facility] Medical CenterComment on above:Performed By: #### [id number] #### [facility] [address], [place] [address]Psbolob D 25 Hydroxyon 171835-skkshnoxtyjzlc D3 [Mass/Vol]37.1 ng/pSPilstw56.0-100.0Tr[facility] Medical CenterComment on above: Performed By: #### [id number] #### [facility] [address], [place] [address]eYUJkf 92-91-6912cTLK81 mL/min/1.73 q1Nnpuzc>=59Tr[facility]ull Regional Medical CenterComment on above:Order Comment: Order added by Discern Expert. Performed By: #### [id number] #### [facility] [address], [place] [address]Pgnrhligmu Visit Summaryon 60-50-6783Xhqcoaaxvs Visit Summary TOMASZ PEPE :1955 Visit Date:12/04/2023 Ambulatory Visit Instructions Your Diagnosis Annual visit for general adult medical examination with abnormal findings Primary ovarian failure Breast cancer screening by mammogram Colon cancer screening On statin therapy BMI 39.0-39.9,adult Obesity due to excess calories Screening for hepatitis C declined Tests Performed BD Bone Density DEXA -- Results Pending -- MA Mamm Screen w/CAD if perf and 3D Kevin -- Results Pending -- Please visit your patient portal for your results or contact your primary care physician. Your Care Team Attending Physician - Nida Saunders Primary Care Physician - Nida Saunders This Is Your Medications List acetaminophen-ibuprofen (acetaminophen-ibuprofen 250 mg-125 mg oral tablet) aspirin (aspirin 81 mg Oral EC Tab) carvedilol (carvedilol 25 mg Tab) furosemide (furosemide 20 mg Tab) hydrochlorothiazide-lisinopril (hydrochlorothiazide-lisinopril 12.5 mg-20 mg Tab) levothyroxine (levothyroxine 88 mcg (0.088 mg) Tab) meloxicam (meloxicam 15 mg Tab) multivitamin with minerals (One A Day Women 50 Plus) potassium chloride (Potassium Chloride (Fsc-Lxus-Iba 10) 10 mEq oral tablet, extended release) simvastatin (simvastatin 40 mg Tab) ubiquinone (CoQ10) verapamil (verapamil 120 mg Cap-ER) Procedures Performed None. Discharge Vitals Heart Rate (Peripheral) 78 Respiratory Rate 16 Blood Pressure 136/78 Height 61 in Height 156 cm Weight 210.54 lb Weight 95.7 kg BMI 39.32 What to do next Scheduled Follow-Up Appointments Friday 10:00 AM EDT With: Nida Saunders Where: [facility] [address] [address]- \.br\ Medications\.br\ What How Much When Why Instructions\.br\ Unchanged acetaminophen-ibuprofen (acetaminophen-ibuprofen 250 mg-125 mg oral tablet) By Mouth Every 8 hours\.br\ Unchanged aspirin (aspirin 81 mg Oral EC Tab) 1 Tablets By Mouth 2 times a day Patient states she takes one tab once a day and sometimes twice a day \.br\ Unchanged carvedilol (carvedilol 25 mg Tab) 1 Tablets By Mouth 2 times a day\.br\ Unchanged furosemide (furosemide 20 mg Tab) 1 Tablets By Mouth Every day\.br\ Unchanged hydrochlorothiazide-lisinopril (hydrochlorothiazide- lisinopril 12.5 mg-20 mg Tab) 1 Tablets By Mouth Every day\.br\ Unchanged levothyroxine (levothyroxine 88 mcg (0.088 mg) Tab) 1 Tablets By Mouth Every day\.br\ Unchanged meloxicam (meloxicam 15 mg Tab) 1 Tablets By Mouth Every day BMI 38.0-38.9,adult Non-smoker Duration: 90 Days\.br\ Unchanged multivitamin with minerals (One A Day Women 50 Plus)\.br\ Unchanged potassium chloride (Potassium Chloride (Dts-Yfjl-Udj 10) 10 mEq oral tablet, extended release) 1 Tablets By Mouth Every day\.br\ Unchanged simvastatin (simvastatin 40 mg Tab) 1 Tablets By Mouth Once a day (in the evening)\.br\ Unchanged ubiquinone (CoQ10) See instructions one tab Oral Daily \.br\ Unchanged verapamil (verapamil 120 mg Cap-ER) 1 Capsules By Mouth Every day\.br\ Allergies\.br\ Latex (Hives)\.br\ Neosporin (Hives)\.br\ Problems\.br\ Ongoing - Any problem that you are currently receiving treatment for.\.br\ Leg pain, lateral\.br\ Low back pain with right-sided sciatica\.br\ Patient Survey\.br\ You may receive a survey via text or e-mail asking about your office visit. Please share your experience with usby completing your survey. We appreciate your feedback and thank you for choosing us for your care.\.br\ Education Materials\.br\ Breast Self- Awareness\.br\ Breast self-awareness means being familiarwith how your breasts look and feel. It involves checking your breasts regularly and telling your he alth care provider about any changes.\.br\ Practicing breast self-awareness helps to maintain breast health. Sometimes, changes are not harmful (are benign). Other times, a change in your breasts canbe a sign of a serious medical problem. Being familiar with the look and feel of your breasts can help you catch a breast problem while it is still small and can be treated. You should do breast self-exams even if you have breast implants.\.br\ What you need:\.br\ ? \.br\ A mirror.\.br\ ? \.br\ A well-lit room.\.br\ ? \.br\ A pillow or other soft object.\.br\ How to do a breast self-exam\.br\ A breast self-exam is one way to learn what is normal for your breasts and whether your breasts are bellamy ging. To do a breast self-exam:\.br\ Look for changes\.br\ \.br\ 1. \.br\ Remove allthe clothing above your waist.\.br\ 2. \.br\ sign language interpreter front of a mirror in a room with good lighting.\.br\ 3. \.br\ Put your hands down at your sides.\.br\ 4. \.br\ Compare your breasts in the mirror. Look for differences between them (asymmetry), such as:\.br\ ? \.br\ Differences in shape.\.br\ ? \.br\ Differences in size.\.br\ ? \.br\ Puckers, dips, and bumps in one breast and not the other.\.br\ 5. \.br\ Look at each breast for changes in the skin, such as:\.br\ ? \.br\ Redness.\.br\ ? \.br\Scaly areas.\.br\ ? \.br\ Skin thickening.\.br\ ? \.br\ Dimpling.\.br\ ? \.br\ Open sores (ulcers).\ .br\ 6. \.br\ Look for changes in your nipples, such as:\.br\ ? \.br\ Discharge.\.br\ ? \.br\ Bleeding.\.br\ ? \.br\ Dimpling.\.br\ ? \.br\ Redness.\.br\ ? \.br\ A nipple that looks pushed in (retracted), or that has changed position.\.br\ Feel for changes\.br\ Carefully feel your breasts for lumpsand changes. It is best to do this self-exam while lying down. Follow these steps to feel each breast:\.br\ 1. \.br\ Place a pillow under the shoulder of one side of your body.\.br\ 2. \.br\ Place the arm of that side of your body behind your head.\.br\ 3. \.br\ Feel the breast of that side of yourbody using the hand of the opposite arm. To do this:\.br\ ? \.br\ Start in the nipple area and use the pads of your three middle fingers to make ?-inch (2 cm) overlapping circles.\.br\ ? \.br\ Use light, medium, and then firm pressure as you feel your breast, gently covering the entire breast area and armpit.\.br\ 4. \.br\ Continue the overlapping circles, moving downward over the breast until you feel your ribs below your breast.\.br\ 5. \.br\ Then, make circles with your fingers going upward until you reach your collarbone.\.br\ 6. \.br\ Next, make circles by moving outward across your breast and into your armpit area.\.br\ 7. \.br\ Squeeze the nipple. Check for discharge and lumps.\.br\ 8. \.br\ Repeat steps 1?7 to check your other breast.\.br\ 9. \.br\ Sit or answering service operator the tub or shower .\.br\ 10. \.br\ With soapy water on your skin, feel each breast the same way you did when you werelying down.\.br\ Write down what you find\.br\ Writing down what you find can help you remember what to discuss with your health care provider. Write down:\.br\ ? \.br\ What is normal for each breast.\.br\ ? \.br\ Any changes that you find in each breast. These include:\.br\ ? \.br\ The kind of changes you find.\.br\ ? \.br\ Any pain or tenderness.\.br\ ? \.br\ Size and location of any lumps.\.br\ ? \.br\ Where you are in your menstrual cycle, if you are still getting your menstrual period (menstruating).\.br\ General tips\.br\ ? \.br\ If you are , the best time to examine your br easts is after a feeding or after using a breast pump.\.br\ ? \.br\ If you menstruate, the best time to examine your breasts is 5?7 days after your menstrual period. Breasts are generally lumpier during menstrual periods, and it may be more difficult to notice changes.\.br\ ? \.br\ With time and practice, you will become more familiar with the differences in your breasts and more comfortable withthe exam.\.br\ Contact a health care provider if:\.br\ ? \.br\ You see a change in the shape or size of your breasts or nipples.\.br\ ? \.br\ You see a change in the skin of your breast or nipples, such as a reddened or scaly area.\.br\ ? \.br\ You have unusual discharge from your nipples.\.br\ ? \. br\ You find a new lump or thick area.\.br\ ? \.br\ You have breast pain.\.br\ ? \.br\ You have anyconcerns about your breast health.\.br\ Summary\.br\ ? \.br\ Breast self-awareness includes lookingfor physical changes in your breasts and feeling for any changes within your breasts.\.br\ ? \.br\ Breast self-awareness should be done in front of a mirror in a well-lit room.\.br\ ? \.br\ If you men struate, the best time to examine your breasts is 5?7 days after your menstrual period.\.br\ ? \.br\ Tell your health care provider about any changes you notice in your breasts. Changes include changes in size, changes on the skin, pain or tenderness, or unusual fluid from your nipples.\.br\ This information is not intended to replace advice given to you by your health care provider. Make sure you discuss any questions you have with your health care provider.\.br\ Document Revised: 05/28/2022 Document Reviewed: 05/09/2022 [employer] Patient Education ? 2022 [employer].\.br\[facility] Medicine Office/Clinic Noteon [id number] Medicine Office/Clinic NoteChief Complaint Medicare Wellness Visit Review of Systems PHQ Score Initial Depression Screen Score: 0 SCORE Physical Exam Vitals & Measurements HR: 78(Peripheral) RR: 16 BP: 136/78 SpO2: 93% HT: 156 cm HT: 61 in WT: 95.7 kg WT: 210.54 lb BMI: 39.32 Assessment/Plan 1. Annual visit for general adult medical examination with abnormal findings (Z00.01: Encounter forgeneral adult medical examination with abnormal findings) The patient was given a customized and personalized print out of all the current AHRQ USPSTF?s recommendations for preventative services and all current CDC recommended immunizations, relevant risk recommendations and the following patient brochures were given. Reviewed Medicare Prevention Services checklist. CDC-Falls Prevention and home safety screening reviewed. Patient denies any falls in last 12 months, voices some worry about falling. Exhibits no problems with sitting, is slow to stand at times due to pain, exhibits no problems with ambulation. Patient aware with keeping walk way area free of clutter to prevent tripping and/or falling. [place] Advance Directives reviewed. Patient states she does not have Advance Directives, Education given and Educational Handout provided. Patient denies any problems with ADL?s and Instrumental ADL?s. Cognitive screening completed with memory and clock face drawing. No deficits noted. Immunization record reviewed, discussed Shingrix and Pneumococcal vaccines with educational handouts and availability. COVID vaccines have been administered, with Boosters received. Allergies and medications reviewed and up to date. No concerns with taking medication as prescribed. Reviewed OTC medications, medication list up to date. Blood tests were reviewed: Labs UTD. No concerns with bowel/ bladder. Patient requesting Cologuard, Cologuard order placed. Reviewed pain symptoms : chronic back pain 8 on 1-10 scale. States she takes tylenol with ibuprofenand it is helpful, also uses heat. Reviewed all outside providers that patient follows. Last visit summary notes available in chart and/or have been requested. Patient declines any signs or symptoms of depression at this time. 8 minutes spent with screening and documentation. PHQ2 screening score 0. Patient drinks alcohol 1-2 times per year, 1-2 beers per episode, denies concerns. 10 minutes spentwith screening and documentation. Audit score 1. Follow up scheduled with PCP, 12/22/23. AWV has been scheduled, 12/02/24. Abnormal findings with elevated BP, serial assessment completed and documented. BP #1 152/82 BP #2 136/78. HTN stoplight given to patient as well as a BP card she can track her BP's on at home to bring with her to next office visit to discuss with PCP. Patient voices understanding. Medicare provides yearly screening for alcohol and depression concerns. This is completed during our Medicare wellness visit for those who do not have a current diagnosis of depression or concerns with alcohol use. I spent a total of 18 minutes on this date of service which included preparing to see the patient, face to face patient care, completing clinical documentation, obtaining and/or reviewing separately obtained history, counseling and educating the patient with handouts. Explanations were provided with reviewing questionnaires. AUDIT risk assessment screening completed, risk score (1)with patient denying concerns with use. Completed PHQ-2 risk assessment for depression with risk score (0), negative findings. Patient has been reminded to notify the provider if there would be a change or concerns with symptoms with fear, unable to sleep, worrying too much or feeling down and/or sad with lost of interest with daily activities. Will continue to monitor with screening yearly during Medicare wellness visits. 2. Primary ovarian failure (E28.39: Other primary ovarian failure) Patient due to have repeated DEXA scan. Reviewed recommended Calcium supplements with light weight bearing exercising. Dexa has been ordered with orders faxed to [facility] per patient request, patient aware she needs to call [facility] to schedule, patient advised to hold all CALCIUM supplements 24 hours prior to date of testing. 3. Breast cancer screening by mammogram (Z12.31: Encounter for screening mammogram for malignant neoplasm of breast) Patient to have yearly mammogram screening. Patient encouraged to continue with home self breast exams, easy to read demonstration on how to perform reviewed and provided to patient. Mammogram has been ordered with orders faxed to [facility] per patient request, patient aware she needs to call [facility] to schedule. Advised no deodorant, sprays or lotions. 4. Colon cancer screening (Z12.11: Encounter for screening for malignant neoplasm of colon) Denies concerns with constipation and/or rectal bleeding. Denies family history of Colon Cancer Pt declines interest in scheduling a colonoscopy screening, accepting of Cologuard testing. Reviewed process (more content not included)... [facility] HospitalComment on above:Result Comment: Electronically Signed By: Nida Saunders\.br\Date and Time Signed: 12/04/23 12:18 EDT\.br\Electronically Co-Signed By: Brittany Gee LPN\.br\Date and Time Co- Signed: 12/04/23 12:11 EDTFormson [id number] [id number]. Charles HospitalPatient Educationon [id number] EducationNutrition DASH Eating Plan DASH stands for Dietary Approaches to Stop Hypertension. The DASH eating plan is a healthy eating plan that has been shown to: ? Reduce high blood pressure (hypertension). ? Reduce your risk for type 2 diabetes, heart disease, and stroke. ? Help with weight loss. What are tips for following this plan? Reading food labels ? Check food labels for the amount of salt (sodium) per serving. Choose foods with less than 5 percent of the Daily Value of sodium. Generally, foods with less than 300 milligrams (mg) of sodium per serving fit into this eating plan. ? To find whole grains, look for the word whole as the first word in the ingredient list. Shopping ? Buy products labeled as low-sodium or no salt added. ? Buy fresh foods. Avoid canned foods and pre-made or frozen meals. Cooking ? Avoid adding salt when cooking. Use salt-free seasonings or herbs instead of table salt or sea salt. Check with your health care provider or pharmacist before using salt substitutes. ? Do not lira foods. Cook foods using healthy methods such as baking, boiling, grilling, roasting, and broiling instead. ? Cook with heart-healthy oils, such as olive, canola, avocado, soybean, or sunflower oil. Meal planning ? Eat a balanced diet that includes: ? 4 or more servings of fruits and 4 or more servings of vegetables each day. Try to fill one-half of your plate with fruits and vegetables. ? 6?8 servings of whole grains each day. ? Less than 6 oz (170 g) of lean meat, poultry, or fish each day. A 3-oz (85-g) serving of meat is about the same size as a deck of cards. One egg equals 1 oz (28 g). ? 2?3 servings of low-fat dairy each day. One serving is 1 cup (237 mL). ? 1 serving of nuts, seeds, or beans 5 times each week. ? 2?3 servings of heart-healthy fats. Healthy fats called omega-3 fatty acids are found in foods such as walnuts, flaxseeds, fortified milks, and eggs. These fats are also found in cold-water fish, such as sardines, salmon, and mackerel. ? Limit how much you eat of: ? Canned or prepackaged foods. ? Food that is high in trans fat, such as some fried foods. ? Food that is high in saturated fat, such as fatty meat. ? Desserts and other sweets, sugary drinks, and other foods with added sugar. ? Full-fat dairy products. ? Do not salt foods before eating. ? Do not eat more than 4 egg yolks a week. ? Try to eat at least 2 vegetarian meals a week. ? Eat more home-cooked food and less restaurant, buffet, and fast food. Lifestyle ? When eating at a restaurant, ask that your food be prepared with less salt or no salt, if possible. ? If you drink alcohol: ? Limit how much you use to: ? 0?1 drink a day for women who are not . ? 0?2 drinks a day for men. ? Be aware of how much alcohol is in your drink. In the [place] one drink equals one 12 oz bottle of beer (355 mL), one 5 oz glass of wine (148 mL), or one 1? oz glass of hard liquor (44 mL). General information ? Avoid eating more than 2,300 mg of salt a day. If you have hypertension, you may need to reduce your sodium intake to 1,500 mg a day. ? Work with your health care provider to maintain a healthy body weight or to lose weight. Ask whatan ideal weight is for you. ? Get at least 30 minutes of exercise that causes your heart to beat faster (aerobic exercise) mostdays of the week. Activities may include walking, swimming, or biking. ? Work with your health care provider or dietitian to adjust your eating plan to your individual calorie needs. What foods should I eat? Fruits All fresh, dried, or frozen fruit. Canned fruit in natural juice (without added sugar). Vegetables Fresh or frozen vegetables (raw, steamed, roasted, or grilled). Low-sodium or reduced-sodium tomatoand vegetable juice. Low-sodium or reduced-sodium tomato sauce and tomato paste. Low-sodium or reduced-sodium canned vegetables. Grains Whole-grain or whole-wheat bread. Whole-grain or whole-wheat pasta. Brown rice. Oatmeal. Quinoa. Bulgur. Whole-grain and low-sodium cereals. Valeria bread. Low- fat, low-sodium crackers. Whole-wheat flour tortillas. Meats and other proteins Skinless chicken or turkey. Ground chicken or turkey. Pork with fat trimmed off. Fish and seafood. Egg whites. Dried beans, peas, or lentils. Unsalted nuts, nut butters, and seeds. Unsalted canned beans. Lean cuts of beef with fat trimmed off. Low-sodium, lean precooked or cured meat, such as sausages or meat loaves. Dairy Low-fat (1%) or fat-free (skim) milk. Reduced-fat, low-fat, or fat-free cheeses. Nonfat, low-sodiumricotta or cottage cheese. Low-fat or nonfat yogurt. Low-fat, low-sodium cheese. Fats and oils Soft margarine without trans fats. Vegetable oil. Reduced-fat, low-fat, or light mayonnaise and salad dressings (reduced-sodium). Canola, safflower, olive, avocado, soybean, and sunflower oils. Avocado. Seasonings and condiments Herbs. Spices. Seasoni (more content not included)...[facility] Centercreenson [id number] [id number] Citizens HospitalAmbulatory Visit Summaryon [id number] Visit Summary TOMASZ PEPE :1955 Visit Date:11/10/2023 Ambulatory Visit Instructions Your Diagnosis Low back pain with right-sided sciatica BMI 38.0-38.9,adult Non-smoker Your Care Team Attending Physician - Nida Saunders Primary Care Physician - Nida Saunders This Is Your Medications List carvedilol (carvedilol 25 mg Tab) furosemide (furosemide 20 mg Tab) hydrochlorothiazide-lisinopril (hydrochlorothiazide-lisinopril 12.5 mg-20 mg Tab) levothyroxine (levothyroxine 88 mcg (0.088 mg) Tab) meloxicam (meloxicam 15 mg Tab) methylPREDNISolone (methylPREDNISolone 4 mg tab dosepak) potassium chloride (Potassium Chloride (Ilr-Hvdp-Cds 10) 10 mEq oral tablet, extended release) simvastatin (simvastatin 40 mg Tab) verapamil (verapamil 120 mg Cap-ER) Discharge Vitals Heart Rate (Peripheral) 76 Respiratory Rate 18 Blood Pressure 122/82 Height 156.5 cm Height 62 in Weight 94.50 kg Weight 207.9 lb BMI 38.58 What to do next Scheduled Follow-Up Appointments November. 2023 8:00 AM EDT Where: [facility] Medicine Office/Clinic Noteon [phone] Medicine Office/Clinic NoteHPI Staff Tomasz is a 68 year old female presenting for 3 week follow up AVINASH 10/20/23 Low back with right sided sciatica, x-ray ordered, meloxicam and medrol dose pack Pt states she no longer have any pain. She said within 2 days her pain went away. Pt states she has had some anxiety but nothing she wants medication for. Her is in long term and it suppose to be getting released in 1 year and she doesn't want him to come home . History of Present Illness pt presents today for follow up on back pain Review of Systems PHQ Score Initial Depression Screen Score: 0 SCORE Physical Exam Vitals & Measurements HR: 76(Peripheral) RR: 18 BP: 122/82 SpO2: 99% HT: 62 in HT: 156.5 cm WT: 94.50 kg WT: 207.9 lb BMI: 38.58 General: alert, no acute distress ENMT: oral mucosa moist, no pharyngeal erythema or exudate Cardiovascular: regular rate and rhythm, normal peripheral perfusion Respiratory: Lungs CTA, respirations non labored Extremities: no deformity, no trauma Neurological: oriented x 4, LOC appropriate for age, CN II-XII intact, motor strength equal & normal bilaterally, speech normal Assessment/Plan 1. Low back pain with right-sided sciatica (M54.41: Lumbago with sciatica, right side) pt presents today for follow up on back pain. pt is feeling much better. ROM is back to normal no longer has pain. Will send refill on meloxicam. RTC as needed. Will come back for AMW visit and labs 2. BMI 38.0-38.9,adult (Z68.38: Body mass index [BMI] 38.0-38.9, adult) BMI education complete Ordered: meloxicam, 15 mg = 1 tab(s), Oral, Daily, # 30 tab(s), Refills(s) 0, Pharmacy: [id number], 156.5, cm, 10/20/23 9:38:00 EDT, Height/Length Dosing, 94.6, kg, 10/20/23 9:38:00 EDT, Weight Dosing meloxicam, 15 mg = 1 tab(s), Oral, Daily, X 90 day(s), # 90 tab(s), Refills(s) 3, [id number] 156.5, cm, 11/10/23 10:10:00 EDT, Height/Length Dosing, 94.5, kg, 11/10/23 10:10:00 EDT, Weight Dosing 3. Non-smoker (Z78.9: Other specified health status) continue not smoking Ordered: meloxicam, 15 mg = 1 tab(s), Oral, Daily, # 30 tab(s), Refills(s) 0, [id number] 156.5, cm, 10/20/23 9:38:00 EDT, Height/Length Dosing, 94.6, kg, 10/20/23 9:38:00 EDT, Weight Dosing meloxicam, 15 mg = 1 tab(s), Oral, Daily, X 90 day(s), # 90 tab(s), Refills(s) 3, [id number] 156.5, cm, 11/10/23 10:10:00 EDT, Height/Length Dosing, 94.5, kg, 11/10/23 10:10:00 EDT, Weight Dosing Orders: methylPREDNISolone, = 1 packet(s), Oral, Once, as directed on package labeling, # 21 tab(s), Refills(s) 0, [id number] 156.5, cm, 11/10/23 10:10:00 EDT, Height/Length Dosing, 94.5, kg, 11/10/23 10:10:00 EDT, Weight Dosing Follow-up No qualifying data available Problem List/Past Medical History Ongoing Leg pain, lateral Low back pain with right-sided sciatica Historical No qualifying data Medications carvedilol 25 mg Tab, 25 mg= 1 tab(s), Oral, BID furosemide 20 mg Tab, 20 mg= 1 tab(s), Oral, Daily hydrochlorothiazide-lisinopril 12.5 mg-20 mg Tab, 1 tab(s), Oral, Daily levothyroxine 88 mcg (0.088 mg) Tab, 88 mcg= 1 tab(s), Oral, Daily meloxicam 15 mg Tab, 15 mg= 1 tab(s), Oral, Daily, 3 refills methylPREDNISolone 4 mg tab dosepak, 1 packet(s), Oral, Once Potassium Chloride (Dib-Fhld-Oln 10) 10 mEq oral tablet, extended release, 10 mEq= 1 tab(s), Oral, Daily simvastatin 40 mg Tab, 40 mg= 1 tab(s), Oral, qPM verapamil 120 mg Cap-ER, 120 mg= 1 cap(s), Oral, Daily Allergies Latex (Hives) Neosporin (Hives) Social History Tobacco Never (less than 100 in lifetime) Tobacco Use:. Never Smokeless Tobacco Use:. Household tobacco concerns: No., 11/10/2023 Family History Diabetes mellitus type 2: Mother and Sister. Hypertension: Mother, Father and Sister. Immunizations Vaccine Date Status influenza virus vaccine, inactivated 07/09/2023 Recorded influenza virus vaccine, inactivated 05/08/2022 Recorded SARS-CoV-2 (COVID-19) [id number] 05/08/2022 Recorded SARS-CoV-2 (COVID-19) mRNA BNT-162b2 vax 07/18/2021 Recorded SARS-CoV-2 (COVID-19) mRNA BNT-162b2 vax 12/04/2020 Recorded SARS-CoV-2 (COVID-19) mRNA BNT-162b2 vax 11/13/2020 Recorded influenza virus vaccine, inactivated 04/28/2020 Recorded pneumococcal 13-valent vaccine 09/28/2019 Recorded influenza virus vaccine, inactivated 06/06/2019 Recorded influenza virus vaccine, inactivated 05/31/2018 Recorded influenza virus vaccine, inactivated 06/06/[address] Charles HospitalComment on above:Result Comment: Electronically Signed By: Nida Saunders\Date and Time Signed: 11/10/23 10:20 EDTAmbulatory Visit Summary on 18-82-9038Almjlvclor Visit Summary TOMASZ PEPE :1955 Visit Date:10/20/2023 Ambulatory Visit Instructions Your Diagnosis Low back pain with right-sided sciatica Leg pain, lateral BMI 38.0-38.9,adult Non-smoker Your Care Team Attending Physician - Nida Saunders Primary Care Physician - Nida Saunders This Is Your Medications List carvedilol (carvedilol 25 mg Tab) furosemide (furosemide 20 mg Tab) hydrochlorothiazide-lisinopril (hydrochlorothiazide-lisinopril 12.5 mg-20 mg Tab) levothyroxine (levothyroxine 88 mcg (0.088 mg) Tab) meloxicam (meloxicam 15 mg Tab) methylPREDNISolone (Medrol 4 mg Tab) potassium chloride (Potassium Chloride (Gye-Ypum-Jtn 10) 10 mEq oral tablet, extended release) simvastatin (simvastatin 40 mg Tab) verapamil (verapamil 120 mg Cap-ER) Discharge Vitals Heart Rate (Peripheral) 80 Respiratory Rate 18 Blood Pressure 116/78 Height 156.5 cm Height 62 in Weight 94.6 kg Weight 208.12 lb BMI 38.62 What to do next Scheduled Follow-Up Appointments Friday 10:00 AM EDT With: Nida Saunders Where: [facility] Medicine Office/Clinic Noteon [id number] Medicine Office/Clinic NoteHPI Staff Tomasz is a 68 year old female presenting to [facility] care Establish Care: History: Any previous diagnosis: HTN, hypothyroidism History of seeing any specialist: none When was your last doctors visit: Last provider: carine luther Any recent labs: TBH about a month ago(records requested) Health Maintenance UTD: Colonoscopy: never had one Mammogram: 5 years ago - normal TBH Pelvic/Pap: over 15-20 years ago Acute: Current issues/complaints: Onset: 3-4 years worsening over the last 1.5 years. Pain starts in right knee shooting up to right hip and across lower back. When awakening in morning sometimes she can't put any weight on her leg and has a hard time standing. 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 Pain can be aching/sharp shooting pain just depends on how much she has to use her leg. no injury noted. Pt hasn't had any imaging or PT. has been taking ibuprofen History of Present Illness pt presents today to establish care. with low back pain and right hip and outer leg pain coming from the outer part of her knee Review of Systems PHQ Score Initial Depression Screen Score: 0 SCORE Physical Exam Vitals & Measurements HR: 80(Peripheral) RR: 18 BP: 116/78 SpO2: 98% HT: 62 in HT: 156.5 cm WT: 94.6 kg WT: 208.12 lb BMI: 38.62 General: alert, no acute distress ENMT: oral mucosa moist, no pharyngeal erythema or exudate Cardiovascular: regular rate and rhythm, normal peripheral perfusion Respiratory: Lungs CTA, respirations non labored Extremities: no deformity, no trauma Neurological: oriented x 4, LOC appropriate for age, CN II-XII intact, motor strength equal & normal bilaterally, speech normal Assessment/Plan 1. Low back pain with right-sided sciatica (M54.41: Lumbago with sciatica, right side) pt having right sciatic pain. will order x ray at [facility] and meloxicam with medrol dose pack. RTC 3 weeks if no improvement may consider pain management referral 2. Leg pain, lateral (M79.606: Pain in leg, unspecified) right lateral leg pain from knee all the way to hip and into lower back 3. BMI 38.0-38.9,adult (Z68.38: Body mass index [BMI] 38.0-38.9, adult) BMI education complete Ordered: meloxicam, 15 mg = 1 tab(s), Oral, Daily, # 30 tab(s), Refills(s) 0, Pharmacy: [facility]/pharmacy #[id number], 156.5, cm, 10/20/23 9:38:00 EDT, Height/Length Dosing, 94.6, kg, 10/20/23 9:38:00 EDT, Weight Dosing methylPREDNISolone, = 1 packet(s), Oral, As Directed, as directed on package labeling, X 6 day(s), # 21 tab(s), Refills(s) 0, Pharmacy: [facility]/pharmacy #[id number], 156.5, cm, 10/20/23 9:38:00 EDT, Height/Length Dosing, 94.6, kg, 10/20/23 9:38:00 EDT, Weight Dosing 4. Non-smoker (Z78.9: Other specified health status) continue not smoking Ordered: meloxicam, 15 mg = 1 tab(s), Oral, Daily, # 30 tab(s), Refills(s) 0, [id number] 156.5, cm, 10/20/23 9:38:00 EDT, Height/Length Dosing, 94.6, kg, 10/20/23 9:38:00 EDT, Weight Dosing methylPREDNISolone, = 1 packet(s), Oral, As Directed, as directed on package labeling, X 6 day(s), # 21 tab(s), Refills(s) 0, [id number], 156.5, cm, 10/20/23 9:38:00 EDT, Height/Length Dosing, 94.6, kg, 10/20/23 9:38:00 EDT, Weight Dosing Follow-up No qualifying data available Problem List/Past Medical History Ongoing Leg pain, lateral Low back pain with right-sided sciatica Historical No qualifying data Medications carvedilol 25 mg Tab, 25 mg= 1 tab(s), Oral, BID furosemide 20 mg Tab, 20 mg= 1 tab(s), Oral, Daily hydrochlorothiazide-lisinopril 12.5 mg-20 mg Tab, 1 tab(s), Oral, Daily levothyroxine 88 mcg (0.088 mg) Tab, 88 mcg= 1 tab(s), Oral, Daily Medrol 4 mg Tab, 1 packet(s), Oral, As Directed meloxicam 15 mg Tab, 15 mg= 1 tab(s), Oral, Daily Potassium Chloride (Rpr-Bhab-Sfc 10) 10 mEq oral tablet, extended release, 10 mEq= 1 tab(s), Oral, Daily simvastatin 40 mg Tab, 40 mg= 1 tab(s), Oral, qPM verapamil 120 mg Cap-ER, 120 mg= 1 cap(s), Oral, Daily Allergies Latex (Hives) Neosporin (Hives) Social History Tobacco Never (less than 100 in lifetime) Tobacco Use:. Never Smokeless Tobacco Use:. Household tobacco concerns: No., 10/20/2023 Family History Diabetes mellitus type 2: Mother and Sister. Hypertension: Mother, Father and Sister. Immunizations Vaccine Date Status influenza virus vaccine, inactivated 07/09/2023 Recorded influenza virus vaccine, inactivated 05/08/2022 Recorded SARS-CoV-2 (COVID-19) mRNAMUL.ORD![id number] 05/08/2022 Recorded SARS-CoV-2 (COVID-19) mRNA BNT-162b2 vax 07/18/2021 Recorded SARS-CoV-2 (COVID-19) mRNA BNT-162b2 vax 12/04/2020 Recorded SARS-CoV-2 (COVID-19) mRNA BNT-162b2 vax 11/13/2020 Recorded influenza virus vaccine, inactivated 04/28/2020 Recorded pneumococcal 13-valent vaccine 09/28/2019 Recorded influenza virus vaccine, inactivated 06/06/2019 Recorded influenza virus vaccine, inactivated 05/31/2018 Recorded influenza virus vaccine (more content not included)...[facility] Charles HospitalComment on above:Result Comment: Electronically Signed By: Nida Saunders\.br\Date and Time Signed: 10/20/23 11:15 EDTGLYCOHEMOGLOBIN A1Con 07-65-1223YDW RECOMMENDATIONADA THERAPEUTIC TARGET 6.0 - 7.0 ACTION SUGGESTED > 7.0NoMetroHealth Cleveland Heights Medical CenterComment on above:Performed By: #### A1C #### [facility] [address] [place] [address] Dada KarenGlucose [Mass/Vol]120 mg/dLNoMetroHealth Cleveland Heights Medical CenterComment on above:Performed By: #### A1C #### [facility] [address] [place] [address] Dada OcbjsMiU8f (Bld) [Mass fraction]5.8 %Normal<=6.0[facility] Comment on above:Performed By: #### A1C #### [facility] [address] [place] [address] Dada KarenLIPID PROFILEon 25-59-7283ENFQ-HDL RATIO NORMSEE BELOWACMC Healthcare SystemComment on above:Result Comment: 3.3 - 4.4 LOW RISK 4.4 - 7.1 AVERAGE RISK 7.1 - 11.0 MODERATE RISK >11.0 HIGH RISKPerformed By: #### CMP, LIPID, TSH #### [facility] [address] [id number] Dada KarenCholesterol [Mass/Vol]176 mg/dLNormal<=200[facility] Comment on above:Performed By: #### CMP, LIPID, TSH #### [facility] [address] [phone] Dada KarenCholesterol in HDL [Mass/Vol]61 mg/dLACMC Healthcare System Comment on above:Performed By: #### CMP, LIPID, TSH #### [facility] [address] [phone] Dada KarenCholesterol in LDL [Mass/Vol]89.6 mg/dLACMC Healthcare System Comment on above:Performed By: #### CMP, LIPID, TSH #### [facility] [address] [address] Dada KarenCholesterol.total/Cholesterol in HDL [Mass ratio]2.9 {ratio}Normal The [facility] HospitalComment on above:Performed By: #### CMP, LIPID, TSH #### [facility] [address] [phone] Dada KarenHDL NORMAL> or = 60 mg/dl - LOW CARDIOVASCULAR RISK <40 mg/dl - HIGH CARDIOVASCULAR RISKACMC Healthcare SystemComment on above:Performed By: #### CMP, LIPID, TSH #### [facility] [address] [phone] Adda KarenLDL CALC NORMALSEE BELOWACMC Healthcare SystemComment on above: Result Comment: <100 mg/dl OPTIMAL 100 - 129 mg/dl NEAR OR ABOVE OPTIMAL 130 - 159 mg/dl BORDERLINE HIGH 160 - 189 mg/dl HIGH >190 mg/dl VERY HIGHPerformed By: #### CMP, LIPID, TSH #### [facility] [address] [phone] Dada KarenTriglyceride [Mass/Vol]127 mg/dLNormal<=150[facility] Comment on above:Performed By: #### CMP, LIPID, TSH #### [facility] [address] [phone] Dada KarenVLDL CALC25.4 mg/dLNormalThe [facility] HospitalComment on above: Performed By: #### CMP, LIPID, TSH #### [facility] [address] [place] [address] Dada KarenMICROALBUMIN, RAND URon 65-98-8820aBUZ<1.3Normal<=30.0The [facility] HospitalComment on above:Performed By: #### MALBR #### [facility] [address] [address] Dada KarenPROF 14(COMP METB)on 67-31-1981Ljrxbxg [Mass/Vol]3.8 g/dLNormal 3.5-5.0The [facility] HospitalComment on above:Performed By: #### CMP, LIPID, TSH #### [facility] [address] [place] [address] Dada KarenAlbumin/Globulin [Mass ratio]0.8 {ratio}NormalNorwalk Memorial Hospital Comment on above:Performed By: #### CMP, LIPID, TSH #### [facility] [address] [place] [address] Dada KarenALP [Catalytic activity/Vol]81 U/YEesfky90-029WshNorwalk Memorial Hospital Comment on above:Performed By: #### CMP, LIPID, TSH #### [facility] [address] [place] [address] Dada KarenALT [Catalytic activity/Vol]31 U/LNormal9-52The [facility] Comment on above:Performed By: #### CMP, LIPID, TSH #### [facility] [address] [place] [address] Dada KarenAnion gap [Moles/Vol]10.1 mmol/LNormalNorwalk Memorial HospitalComment on above:Performed By: #### CMP, LIPID, TSH #### [facility] [address] [place] [address] Dada KarenAST [Catalytic activity/Vol]21 U/GWhwhgj53-75Pmc [facility] Comment on above:Performed By: #### CMP, LIPID, TSH #### [facility] [address] [address] Dada KarenBilirubin [Mass/Vol]0.4 mg/dLNormal0.2-1.3The [facility] Comment on above:Performed By: #### CMP, LIPID, TSH #### [facility] [address] [address] Dada KarenCalcium [Mass/Vol]9.2 mg/dLNormal8.4-10.2The [facility] Comment on above:Performed By: #### CMP, LIPID, TSH #### [facility] [address] [address] Dada KarenChloride [Moles/Vol]103 mmol/LMtfxpu41-089Snc [facility] Comment on above:Performed By: #### CMP, LIPID, TSH #### [facility] [address] [place] [address] Dada KarenCO2 [Moles/Vol]30.8 mmol/LCritically high22.0-30.0The [facility] HospitalComment on above:Performed By: #### CMP, LIPID, TSH #### [facility] [address] [place] [address] Dada KarenCreatinine [Mass/Vol]0.89 mg/dLNormal0.52-1.04The [facility] Comment on above:Performed By: #### CMP, LIPID, TSH #### [facility] [address] [address] Dada KarenEGFR-AF LEBANESE>60Normal>=60The [facility] HospitalComment on above: Performed By: #### CMP, LIPID, TSH #### [facility] [address] [place] [address] Dada KarenEGFR-NON AF LEBANESE>60Normal>=60The [facility] HospitalComment on above:Performed By: #### CMP, LIPID, TSH #### [facility] [address] [place] [address] Dada KarenGlobulin (S) [Mass/Vol]4.7 g/dLNormalThe [facility] HospitalComment on above:Performed By: #### CMP, LIPID, TSH #### [facility] [address] [place] [address] Dada KarenGlucose [Mass/Vol]115 mg/dLCritically bmns51-480JptNorwalk Memorial HospitalComment on above:Performed By: #### CMP, LIPID, TSH #### [facility] [address] [place] [address] Dada KarenPotassium [Moles/Vol]3.9 mmol/LNormal3.4-5.0The [facility] Comment on above:Performed By: #### CMP, LIPID, TSH #### [facility] [address] [place] [address] Dada KarenProtein [Mass/Vol]8.5 g/dLCritically high6.1-8.2[facility] HospitalComment on above:Performed By: #### CMP, LIPID, TSH #### [facility] [address] [place] [address] Dada KarenSodium [Moles/Vol]140 mmol/VUgqqmt436-695Inj [facility] Comment on above:Performed By: #### CMP, LIPID, TSH #### [facility] [address] [place] [address] Dada KarenUrea nitrogen [Mass/Vol]18.0 mg/dLCritically high7.0-17.0[facility] HospitalComment on above:Performed By: #### CMP, LIPID, TSH #### [facility] [address] [place] [address] Dada KarenUrea nitrogen/Creatinine [Mass ratio]20.2 mg/[facility] HospitalComment on above:Performed By: #### CMP, LIPID, TSH #### [facility] [address] [place] [address] Dada KarenTSHon 63-70-0012ZTU2.696 uIU/mLNormal0.470-4.680[facility] HospitalComment on above:Performed By: #### CMP, LIPID, TSH #### [facility] [address] [place] [address] Dada KarNationwide Children's HospitalComment on above:Result Comment: <0.34 UIU/ml HYPERTHYROID 0.34-5.60 UIU/ml EUTHYROID >5.60 UIU/ml HYPOTHYROIDPerformed By: #### CMP, LIPID, TSH #### [facility] [address] [place], [place] [address] Dada Umaña Vital Signs Date TimeVital SignValuePerforming CkgsungyjXngcmxxn54-16-0821 13:49-0400Body kacwwp785.56 cmBety Chung APPLICATION PACKAGING CONSULTANT Work Phone: [phone]10-08-2025 13:49-0400 Body mass index (BMI) [Ratio]36 kg/x5OyzqcdepBety Chung APPLICATION PACKAGING CONSULTANT Work Phone: [phone]10-08-2025 13:49-0400 Body imptvocucae42.4 [degF]Bety Chung APPLICATION PACKAGING CONSULTANT Work Phone: [phone]10-08-2025 13:49-0400 Body iddmap72.25 kgBety Chung APPLICATION PACKAGING CONSULTANT Work Phone: [phone]10-08-2025 13:49-0400 Diastolic blood jrkddsfu00 mm[Hg]Bety Chung APPLICATION PACKAGING CONSULTANT Work Phone: [phone] [address]10-08-2025 13:49-0400 Heart rate73 /minBety Chung APPLICATION PACKAGING CONSULTANT Work Phone: [phone] [place], [place] [address]210-08-2025 13:49-0400 SaO2% (BldA) [Mass fraction]97 %Bety Chung APPLICATION PACKAGING CONSULTANT Work Phone: [phone] [address]10-08-2025 13:49-0400 Systolic blood efvhwzwf027 mm[Hg]Bety Chung APRN Work Phone: [phone] Encounters Encounter DateEncounter TypeCare ProviderFacilityStart: 04-27-2025 End: 01-79-4747sbskdqjjqhRpifujfc Rohrbacher APPLICATION PACKAGING CONSULTANT Work Phone: [facility] Work Phone: Start: 04-27-2025 End: 14-02-7538Ihqvtft encounter procedureBety Chung APPLICATION PACKAGING CONSULTANT [facility] Work Phone: Start: 33-64-1930plykrcltqeDnnf L SchwabFacility:FT FM BellevueStart: 06-22-2024 End: 19-30-5020pohseamzjrIqmj L SchwabFacility:FT FM [place]vueStart: 03-15-2024 End: 68-94-8934ygipgtpeagKocx L SchwabFacility:FT FM [place]vueStart: 03-11-2024 ambulatoryJodi L SchwabFacility:FT FM [place]vueStart: 01-05-2024 End: 86-58-0422colvirxfcxMgqo L SchwabFacility:FT FM BellevueStart: 12-22-2023 End: 33-51-3722Blj Drop offJodi L Maile [facility] Start: 12-22-2023 End: 82-69-7542rywemwalitFkut L SchwabFacility:FTMCStart: 12-04-2023 End: 62-91-0017harlelsufpHrle L SchwabFacility:FT FM [place]vueStart: 11-10-2023 End: 79-54-2725qkrnxmnsdhYfxz L SchwabFacility:FT FM [place]vueStart: 10-20-2023 End: 51-98-5928cgqxrbkoruBgen L SchwabFacility:FT FM [place]vueStart: 10-09-2023 ambulatoryJodi L SchwabFacility:FT FM BellevueStart: 80-39-7311fjdbwajmvqCDQTJO ROSSFacility:S2Ygxmq: 12-04-2020 End: 88-50-6685wooknlkvxiVUTMEU ROSSFacility:C0Klbbj: 11-13-2020 End: 28-79-7703qtmqalmvqyOYHOQV ROSSFacility:H1 Procedures DateProcedureProcedure DetailPerforming ClinicianNone (qualifier value)Nida Maile Plan of Treatment DateCare ActivityDetailAuthorStart: 44-83-6072Knzdbej referralSheltering Arms Hospital Work Phone: Comprehensive metabolic 2000 panel - Serum or Plasma [facility] CenterPatient referralSheltering [facility] Hospital Work Phone: [facility] Immunizations Immunization DateImmunizationNotesCare OgtiuuabHoflfmnw10-58-9783tayqeieoe virus vaccine, unspecified formulationJodi Maile 096-9674Xixsej-FdxunHarrison Community Hospital 63-56-6148ztvyztvlf virus vaccine, unspecified formulationJodi Maile [phone]-NchjoHarrison Community Hospital 83-57-1434UFFY-CoV-2 (COVID-19) mRNAMUL.ORD![id number] Maile 144-4649Oesuza-JuyetHarrison Community Hospital 25-58-1641TNEQ-CoV-2 (COVID-19) mRNA BNT-162b2 vaxJodi Maile [phone]-HvmsiHarrison Community Hospital 92-67-4073JRWM-CoV-2 (COVID-19) mRNA BNT-162b2 vaxJodi Maile 269-9311Lfdosd-SlmqlHarrison Community Hospital 13-98-3094VARP-CoV-2 (COVID-19) mRNA BNT-162b2 vaxJodi Maile 156-5344Svozjw-IjtxuHarrison Community Hospital 57-98-4711ncodhezjj virus vaccine, unspecified formulationJodi Maile [phone]-BsmqcHarrison Community Hospital 51-68-9825spjcbfmctovu conjugate vaccine, 13 valentJodi Maile [phone]-WwslbHarrison Community Hospital 48-71-4701pzlynumrm virus vaccine, unspecified formulationJodi Maile [phone]-XeqciHarrison Community Hospital 06-30-8090pqajzdhnf virus vaccine, unspecified formulationJodi Maile 050-8823Mbxqdm-EgvvwHarrison Community Hospital 75-58-8904ofswrssab virus vaccine, unspecified formulationJodi Maile [phone]-YqjhfHarrison Community Hospital Payers DatePayer CategoryPayerPolicy [id number] Health [id number] [id number] [id number] 1960Self-pay [id number] 2.0.1.341780.3.57[id number] 2.840.1.516247.3.57[id number] 2.0.1.392843.3.57[id number] 2..1.715819.3.57[id number] 2.840.1.071260.3.57[id number] 2.840.1.034039.3.57[id number] 2.840.1.210432.3.57[id number] 2.840.1.163754.3.57[id number] 2.16.840.1.284166.3.57[id number] 2.16.840.1.094910.3.57[id number] 2.16.840.1.772970.3.57[id number] 2.16.840.1.015623.3.57[id number] 2.16.840.1.106255.3.57[id number] 2.16.840.1.835209.3.57[id number] 2..840.1.332118.3.579.2.727Private Health InsuranceChillicothe Hospital [id number] Social History DateTypeDetailFacilityStart: 12-22-2023 End: 22-77-6114Vtjhlnl smoking statusNever smoked tobacco (finding)[facility] Medicine BellevueTobacco smoking statusNeverUniversity Hospitals [facility] Medicine BellevueSex Assigned At [facility]Fair[facility]illexFemale (finding)[facility] Centertart: 63-13-9234Tqu Assigned At [facility] Hospital Discharge instructions 04-27-2025 Note Date & DexnJswnEzlcgenu03-95-4162 Hospital Discharge instructionsAmbulatory Orders* Referral to Gastroenterology Time Frame: 04/27/25, Location: None Selected [facility] Work Phone: Evaluation note 04-20-2025 Note Date & AhwnNzmzBzrmjncz94-54-8038 Evaluation note* Diagnosis Onset Date Resolution Status Admit Date Diabetes acuteOctober 2024 1:44pmHigh cholesterolacuteOctober 2024 1:44pm HypertensionacuteOctober 2024 1:44pmScreening for colon canceracuteOct2024 1:44pm [facility] Work Phone: Evaluation + Plan note Note Date & TypeNoteFacilityEvaluation + Plan note Future Appointments Appointment Date:12/02/2024 08:00:00 AM Scheduled Provider: Location:[facility] Appointment Type: Medicare Wellness Subsequent [facility] Hospital course Narrative Note Date & TypeNoteFacilityHospital course Narrative No data available for this section [facility] Hospital Discharge instructions Note Date & TypeNoteFacilityHospital Discharge instructions No data available for this section [facility] Progress note Note Date & TypeNoteFacilityProgress note No data available for this section [facility] Summary Purpose Family History Relationship Condition Age at Onset Recorded Date/T roldan father Heart disease Unknown motherDiabetes mellitusUnknownHeart diseaseUnknown Advance Directives Advance Directive Response Recorded Date/ Time Advance Directives No April 25, 2025 9:17am Chief Complaint and Reason for Visit Chief Complaint Admit Date establish April 27, 2025 1: 44pm Reason for Visit Admit Date Diabetes April 27, 2025 1: 44pm High cholesterol April 27, 2025 1: 44pm Hypertension April 27, 2025 1: 44pm Screening for colon cancer April 27, 2025 1:44pm Additional Source Comments INFORMATION SOURCE (unrecogn ized section and content) DATE CREATED AUTHOR 04/14/2021 [facility] DATE CREATED AUTHOR AUTHOR'S ORGANIZ ATION 12/23/2023 [facility] DATE CREATED AUTHOR AUTHOR'S ORGANIZ ATION 06/23/2024 [facility] DATE CREATED AUTHOR AUTHOR'S ORGANIZ ATION 07/03/2024 [facility] Patient Care team informatio n (unrecognized section and content) Team Status: Active Member Role Status Dates Bety Chung APRN [employer] Primary Care Provider Active Team Status: Inactive Member Role Status Dates Bety Chung APRN [employer] Primary Care Provider Active Start: April 27, 2025 End: April 27, 2025Jennifer Rohrbacher , APPLICATION PACKAGING CONSULTANT [employer]-CAttending ProviderActive Start: April 27, 2025 End: April 27, 2025 Goals (unrecognized section and content) Goals may be documented in a n alternate section FOR RECORDS PERTAINING TO PATIENTS WHO ARE OR HAVE BEEN ENROLLED IN A CHEMICAL DEPENDENCY/SUBSTANCEABUSE PROGRAM, SOME INFORMATION MAY BE OMITTED. This clinical summary was aggregated from multiple sources. Caution should be exercised in using it in the provision of clinical care. This summary normalizes information from multiple sources, and as a consequence, information in this document may materially change the coding, format and clinical context of patient data. In addition, data may be omitted in some cases. CLINICAL DECISIONS SHOULD BE BASED ON THE PRIMARY CLINICAL RECORDS. [facility]. provides no warranty or guarantee of the accuracy or completeness of information in this document.
--- OUTSIDE RECORDS SUMMARY | 2025-05-21 09:40 | XMS_ITS | Patient Health Record ---
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 Prediabetes: 5.7 - 6.4 Diabetes: >6.4 Glycemic control for adults with diabetes: <7.0 TSH-[id number] Reviewed date:01/26/2025 07:27:03 AM Interpretation: Performing Lab:[facility] [place], Phone - [phone], Director - Rosemarie Notes/Report: Clinical Information:SRC: TSH 3.170 0.450-4.500 uIU/mL CBC With Differential/Platelet-[id number] Reviewed date:01/26/2025 07:27:03 AM Interpretation: Performing Lab:[employer] [facility] [place], Phone - [phone], Director - Rosemarie Notes/Report: Clinical Information:SRC:WBC8.03.4-10.8 x10E3/uLRBC5.183.77-5.28 x10E6/uL Rmarrminbw24.811.1-15.9 g/nMPhcmjzvmws09.234.0-46.6 %FNM0272-57 fLMCH28.626.6- 33.0 qhMLXE16.031.5-35.7 g/dLRDW13.411.7-15.4 %Orbuhswnm300585-614 x10E3/uL Ieouavrskgw73Wnm Estab. %Egyxmz29Kma Estab. %Ehujiojpp8Yhl Estab. %Otj0Niv Estab. %Quiph8Umq Estab. %Neutrophils (Absolute)5.01.4-7.0 x10E3/uLLymphs (Absolute)1.80.7-3.1 x10E3/uLMonocytes(Absolute)0.70.1-0.9 x10E3/uLEos (Absolute)0.30.0-0.4 x10E3/uLBaso (Absolute)0.10.0-0.2 x10E3/uLImmature Kdkdnvehgdpu3Qgx Estab. %Immature Grans (Abs)0.00.0-0.1 x10E3/uLVitamin D, 91-Guhabnz-[id number] Reviewed date:01/26/2025 07:27:03 AM Interpretation: Performing Lab:[facility] [address] [facility] [place], Phone - [phone], Director - [facility] Notes/Report: Clinical Information:SRC:Vitamin D, 25-Rzykqlg82.030.0-100.0 ng/mLL Vitamin D deficiency has been defined by the Pratt of [employer] and an Endocrine Society practice guideline as a level of serum 25-OH vitamin D less than 20 ng/mL (1,2). The Endocrine Society went on to further define vitamin D insufficiency as a level between 21 and 29 ng/mL (2). 1. IOM ([employer] of Medicine). 2010. Dietary reference intakes for calcium and D. [place]: The National Academies Press. 2. Nakita MF, Paulino NC, Nohemi-Cedric FLOYD, et al. Evaluation, treatment, and prevention of vitamin D deficiency: an Endocrine Society clinical practice guideline. JCEM. 2010; 96(7):1911-30. Lipid Panel-[id number] Reviewed date:01/26/2025 07:27:03 AM Interpretation: Performing Lab:[facility] [address], [place], Phone - [phone], Director - [facility] Notes/Report: Clinical Information:SRC:Cholesterol, Ouwkj259802-205 mg/yVCMmnlwtqrmujcx3446- 149 mg/dLHHDL Fnwetoolhhe47>39 mg/dLVLDL Cholesterol Nix278-45 mg/dLHLDL Chol Calc ([facility])2150-99 mg/dLHLDL Calc Comment: Consider evaluating for Familial Hypercholesterolemia(FH), if clinically indicated. Comp. Metabolic Panel (14)-[id number] Reviewed date:01/26/2025 07:27:03 AM Interpretation: Performing Lab:[facility] [place], [address] [facility], [place], Phone - [phone], [facility] Notes/Report: Clinical Information:SRC:Eovmboc31652-07 mg/iEGTPB361-44 mg/dLCreatinine0.83 0.57-1.00 mg/gDaIZM53>59 mL/min/1.73BUN/Creatinine Axijn6879-69Sgilyd059295-646 mmol/LPotassium4.53.5-5.2 mmol/ICkdfjtmv38152-773 mmol/LCarbon Dioxide, Total25 20-29 mmol/LCalcium9.88.7-10.3 mg/dLProtein, Total7.06.0-8.5 g/dLAlbumin4.13.8- 4.8 g/dLGlobulin, Total2.91.5-4.5 g/dLBilirubin, Total0.40.0-1.2 mg/dLAlkaline Jzacvbkpwia1414-623 IU/LAST (SGOT)240-40 IU/LALT (SGPT)310-32 IU/L Reason For Referral Reason colonoscopy Diagnosis 1 COLON CANCER SCREENI (Z12.11) Referral Organization [facility] Referring Provider First Name Dario Referring Provider [...] tablet with food Orally once a dayActiveUltra DYS08486hi once a dayActiveMeloxicam 15 MG Tablet1 tablet [...] 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 Stress is when someone feels tense, nervous, anxious, or can't sleep at nightbecause their mind is troubledA little bitIn the past year have you spent more than 2 nights in a row in a retirement, shelter, half-way center, orjuvenile correctional facility?NoAre you a refugee?NoWhat country are you from?[place]Do you feel physically and emotionally safe where you currently live?YesIn the past year, have you been afraid of your partner or ex-partner?NoPRAPARE Score:4 Problems Problem Type SNOMED Code ICD Code Onset Dates Problem Status W/U Status Risk Notes Problem Overweight (222916479) Overweight (E66.3) ActiveconfirmedProblemhypercholesterolemia (disorder) (47051093) Hypercholesteremia (E78.00)ActiveconfirmedProblemNon-smoker (9217432)NONSMOKER (Z78.9)ActiveconfirmedProblemVitamin D deficiency (52040173)VITAMIN D DEFICIENCY (E55.9)ActiveconfirmedProblemHypertension (57819748)HYPERTENSION (I10)Active confirmedProblemHypothyroid (68571629)Hypothyroid (E03.9)Activeconfirmed Vital Signs Heart Rate 76 /min 01/25/2025 Itbwjvad94 %01/25/2025lood pressure mm Hg01/25/2025Weight-kg95.89 kg01/25/20255779Gqgzhs15 in01/25/2025lood pressure ndykvzxw851 mm Hg01/25/2025 Qutrwp990.4 lbs01/25/2025BMI36.28 kg/m201/25/2025 Encounters Encounter Location Date Provider Diagnosis [address] [id number] 01/25/2025 Dario Singleton TOBACCO NON-USER Z78 .9 [...] FOR DIABETES MELLITUS Z13.1 and Hypothyroid E03.[address] [id number] 01/26/2025 Dario Singleton [address] 140[address]/19/2025David ColaC. DIFFICILE DIARRHEA A04.72[facility] [place], [place] [id number]/David ColaL[place] - [address] [place], [place] [id number]/David Cola Assessments Encounter Date Diagnosis (ICD Code) [...] MAMMOGRAM, SCREENING 01/25/2025 C difficile Toxins A+B, EIA-[id number] 03/08 Insurance Providers Payer Name Payer Address Payer Phone Subscriber Number Group Number Insured Name Patient Relationship to Insured Coverage Start Date Coverage End Date [facility] [employer] [facility] [address] [address] [place] [phone] [id number] Bing Pepe Self - patient is the insured 5
--- OUTSIDE RECORDS SUMMARY | 2025-05-21 09:40 | XMS_ITS | CCD ---
Author Organization [facility] Care Team Providers Care Job Training Supervisor Name Role Phone GEORGE, YULISA Attending Unavailable [...] Admitting Unavailable ROSS, YULISA Primary Care Unavailable Maile, Nida L Primary Care Physician Maile, Nida [...] polymyxin b; Translations: [bacitracin/neomycin/polymyxin B topical]Drug AllergyWeal (disorder)[facility] (4 sources)Latex; Translations: [Latex]Propensity to adverse reactions to lxrqokzts63-76-3591Shej (disorder)[facility] (1 source)BacitracinDrug Bvrexdt67-23-2800nlkqjPvbxnlwbxBellevue Hospital (1 source)LidocaineDrug Etfxftx41-69-0757isipfKjnxsxlskBellevue Hospital (1 source)NeomycinDrug Ykquomu30-14-4858zfzlpIyykrxssoBellevue Hospital (1 source)pramoxineDrug Jxirltu30-23-7040tsdgcDmiksxiukBellevue Hospital (1 source)polymyxin BPropensity to adverse -11-7945pjvxcVkirp[address] [place] [address] Medications Current Medications MedicationDrug Class(es)DatesSig (Normalized)Sig (Original)acetaminophen 250 mg / ibuprofen 125 mg oral tablet (1 source)Nonsteroidal Anti-inflammatory DrugStart: 32-46-3493vcpj 1 tablet by mouth every eight hoursacetaminophen-ibuprofen 250 mg-125 mg oral tablet tab(s), Oral, q8hr, Refill(s) 0 Start Date: 12/04/23 Status: Orderedatorvastatin 40 mg oral tablet (1 source)HMG-CoA Reductase InhibitorStart: 45-45-8190vimv 1 tablet by mouth once dailyAtorvastatin 40 mg tablet Active 40 MG PO Daily April 27, 2025 12:00am Complies with drug therapycarvedilol 25 mg oral tablet (2 sources)alpha-Adrenergic Ria, beta-Adrenergic BlockerStart: 04-27-2025 take 1 tablet by mouth twice daily at mealtimeCarvedilol 25 mg tablet Active 25 MG PO Twice daily April 27, 2025 12:00am must administer with a meal/food Complies with drug therapyStart: 89-72-7412nrss 1 tablet by mouth twice daily carvedilol 25 mg Tab 25 mg = 1 tab(s), Oral, BID, Refills(s) 0 Start Date: 10/20/23 Status: Orderedcholecalciferol 0.05 mg oral capsule (1 source)Vitamin DStart: 58-98-4824icfw 1 capsule by mouth once daily Cholecalciferol (Vitamin D3) 50 mcg (2,000 unit) capsule Active 50 MCG PO Daily April 27, 2025 12:00am Complies with drug qwirapyJiT26 (1 source)Start: 31-70-3304yxty 1 tablet by mouth once ndozdLiK70 See Instructions, one tab Oral Daily, Refills(s) 0 Start Date: 12/04/23 Status: Orderedfurosemide 20 mg oral tablet (2 sources)Loop DiureticStart: 73-22-1288anhv 1 tablet by mouth once daily Furosemide 20 mg tablet Active 20 MG PO Daily April 27, 2025 12:00am Complies with drug therapyStart: 44-82-2561dxgh 1 tablet by mouth once dailyfurosemide 20 mg Tab 20 mg = 1 tab(s), Oral, Daily, Refills(s) 0 Start Date: 10/20/23 Status: OrderedhydroCHLOROthiazide 12.5 mg / lisinopril 20 mg oral tablet (2 sources)Thiazide Diuretic, Angiotensin Converting Enzyme InhibitorStart: 81-32-2768pchm 1 tablet by mouth once dailyLisinopril-Hydrochlorothiazide 20- 12.5 mg tablet Active 1 TAB PO Daily April 27, 2025 12:00am Complies with drug therapyStart: 98-66-0063rlko 1 tablet by mouth once daily hydrochlorothiazide-lisinopril 12.5 mg-20 mg Tab 1 tab(s), Oral, Daily, Refill(s) 0 Start Date: 10/20/23 Status: Orderedlevothyroxine sodium 0.088 mg oral capsule (2 sources)l-ThyroxineStart: 98-70-7155lfcj 1 capsule by mouth once daily Levothyroxine 88 mcg capsule Active 88 MCG PO Daily April 27, 2025 12:00am Complies with drug therapyStart: 86-04-2214lbgq 1 tablet by mouth once daily levothyroxine 88 mcg (0.088 mg) Tab 88 mcg = 1 tab(s), Oral, Daily, Refills(s) 0 Start Date: 10/20/23Status: Orderedmeloxicam 15 mg oral tablet (1 source)Nonsteroidal Anti-inflammatory DrugStart: 11-10-2023 End: 45-59-0501ikpb 1 tablet by mouth once dailymeloxicam 15 mg Tab 15 mg = 1 tab(s), Oral, Daily, X 90 day(s), # 90 tab(s), Refills(s) 3, Pharmacy: [facility]/pharmacy #[id number], 156.5, cm, 11/10/23 10:10:00 EDT, Height/Length Dosing, 94.5, kg, 11/10/23 10:10:00 EDT, Weight Dosing Start Date: 11/10/23 Stop Date: 11/04/24 Status: OrderedmethylPREDNISolone 4 mg tab dosepak (1 source)Start: 37-14-5252gzqa 1 tablet by mouth oncemethylPREDNISolone 4 mg tab dosepak = 1 packet(s), Oral, Once, as directed on package labeling, # 21 tab(s), Refills(s) 0, Pharmacy: [facility]/pharmacy #[id number], 156, cm, 12/04/23 8:31:00 EDT, Height/Length Dosing, 95.7, kg, 12/04/23 8:31:00 EDT, Weight Dosing Start Date: 12/16/23 Status: OrderedMultivitamin (One-A-Day Essential) tablet (1 source)Start: 09-59-3320zvyx 1 tablet by mouth once dailyMultivitamin (One-A-Day Essential) tablet Active 1 TAB PO Daily April 27, 2025 12:00am Complies with drug therapyOne A Day Women 50 Plus (1 source)Start: 88-88-7450Sqf A Day Women 50 Plus Refill(s) 0 Start Date: 12/04/23 Status: Orderedpotassium chloride 10 meq extended release oral tablet (2 sources)Start: 01-93-3708npvk 1 tablet by mouth once dailyPotassium Chloride 10 mEq tablet extended release Active 10 MEQ PO Daily April 27, 2025 12:00am Complies with drug therapyStart: 68-03-3975nfaw 1 tablet by mouth once daily Potassium Chloride (Mrn-Ohvf-Ivw 10) 10 mEq oral tablet, extended release 10 mEq = 1 tab(s), Oral, Daily, Refills(s) 0 Start Date: 10/20/23 Status: Ordered simvastatin 40 mg oral tablet (1 source)HMG-CoA Reductase InhibitorStart: 96-68-5585zlzv 1 tablet by mouth once daily in the eveningsimvastatin 40 mg Tab 40 mg = 1 tab(s), Oral, qPM, Refills(s) 0 Start Date: 10/20/23 Status: Kfvltre86 hr verapamil hydrochloride 120 mg extended release oral capsule (2 sources)Calcium Channel BlockerStart: 49-11-2262vlbd 1 capsule by mouth once dailyVerapamil 120 mg capsule,ext rel. pellets 24 hr Active 120 MG PO Daily April 27, 2025 12:00am Complies with drug therapyStart: 56-47-6491mrdp 1 capsule by mouth once dailyverapamil 120 mg Cap-ER 120 mg = 1 cap(s), Oral, Daily, Refills(s) 0 Start Date: 10/20/23 Status: Ordered Completed/Discontinued Medications MedicationDrug Class(es)DatesSig (Normalized)Sig (Original)aspirin 81 mg delayed release oral tablet (1 source)Platelet Aggregation Inhibitor, Nonsteroidal Anti-inflammatory Drug Start: 24-21-9745fwesrvm 81 mg Oral EC Tab 81 mg = 1 tab(s), Oral, BID, Patient states she takes one tab once a day and sometimes twice a day, Refills(s) 0 Start Date: 12/04/23 Status: Ordered Problems Active Problems Problem ClassificationProblemDateDocumented DateEpisodic/ChronicChronic kidney disease (3 sources)Chronic kidney disease stage 3; Translations: [Chronic kidney disease, stage 3 unspecified]Onset: 73-39-1595NahgjyoFoqglix on above:added per 12/19/2023 query response.linked HTN with CKD per OP CDI policy.Diabetes mellitus with complications (4 sources)Other specified diabetes mellitus with diabetic chronic kidney disease; Translations: [OTHER SPECIFIED DM W/DIABETIC CKD]Onset: 11-13-2020 ChronicDiabetes mellitus without complication (2 sources)Diabetes mellitus; Translations: [Type 2 diabetes mellitus without complications]71-07-0250JqjzezdFgfityhrt of lipid metabolism (3 sources)Hypercholesterolemia; Translations: [Pure hypercholesterolemia, unspecified]87-94-7052PtxrhfnNmkxcug on above:added per 12/19/2023 query response.Essential hypertension (3 sources)Hypertensive disorder; Translations: [Essential (primary) hypertension]97-10-5185WyfbziwFlmlecl on above:noted in 10/20/2023 Office Visit Note. added per OP CDI policy.Hypertension with complications and secondary hypertension (1 source)Hypertensive chronic kidney disease with stage 1 through stage 4 chronic kidney disease, or unspecified chronic kidney disease; Translations: [HTN CKD W/STAGE 1-4 CKD/UNS CKD]Onset: 89-39-9788WqfxdheEmqtyqrxtkn deficiencies (1 source)Vitamin D kdbtgxavbm23-46-2100NagnyzqOlela connective tissue disease (1 source)Pain in lower zxvi79-62-5199QyejrrwkKhmjy screening for suspected conditions (not mental disorders or infectious disease) (2 sources)Patient encounter status; Translations: [Encounter for screening for malignant neoplasm of colon]46-13-9174FzsdyucaSnebdweliha; intervertebral disc disorders; other back problems (1 source)Lumbago co-occurrent with right-side eeewamdp60-81-0059KbfwlspeBkhnhjy disorders (2 sources)Hypothyroidism, unspecified; Translations: [Hypothyroidism]Onset: 324285-01-8821EqgwcaiQzpmyyc on above:noted in 10/20/2023 Office Visit Note. added per OP CDI policy.Unclassified (1 source)CHRN KIDNEY DISEASE STG 3 UNSP; Translations: [CHRN KIDNEY DISEASE STG 3 UNSP]Onset: 07-17-6268Lqgnraxmaaqo (2 sources)Patient encounter status; Translations: [Z12.11 - Encounter for screening for malignant neoplasm ofcolon] Past or Other Problems Problem ClassificationProblemDateDocumented DateEpisodic/ChronicImmunizations and screening for infectious disease (4 sources)Encounter for immunization; Translations: [ENCOUNTER FOR IMMUNIZATION]Onset: 78-76-0955Ufswqnsl Results Test NameValueInterpretationReference RangeFacilityProvider Letteron 06-30-2024 Provider LetterProvider Letter June 30, 20[place] [address] : 1955 To Whom It May Concern, Please excuse above patient from work. Date of Illness: From: 06/28/2024 To: 07/08/2024 May Return to Work On: 07/09/2024 Sincerely, Family Medicine [address] [address] HiuphsCuscaeProMedica Bay Park HospitalProvider LetterProvider Letter June 30, 20[place] [address] : 1955 To Whom It May Concern, Please excuse above student from school. Date of Absence: 06/30/2024 May Return to School On: 06/30/2024 Sincerely, [facility] [address] [place] [address] VjbfjvQkkeheWVUMedicine Barnesville HospitalComment on above:Other Comment: WRONG PATIENTAmbulatory Visit Summaryon 46-82-1587Zvzpmbcijd Visit SummaryAmbulatory Visit Summary TOMASZ PEPE :1955 [...] Women 50 Plus) potassium chloride (Potassium Chloride (Vvd-Qsuy-Tki 10) 10 mEq oral tablet, extended release) [...] Appointments November. 2024 8:00 AM EDT Where: [facility] [place] [address] [place] [address]- Medications What How Much When Why Instructions [...] 50 Plus) Unchanged potassium chloride (Potassium Chloride (Vre-Uwfn-Csm 10) 10 mEq oral tablet, extended release) [...] you for choosing us for your care. [facility] Medicine Office/Clinic Noteon 39-43-0349Snlcfp Medicine Office/Clinic NoteFabrookline hospital Medicine Office/Clinic Note Chief Complaint Rt Sided Pain HPI Staff Tomasz is a 69 year old female presenting with acute pain right side of ribs [place] rib pop on the 24 when she [...] on including her that has been in intermediate for 8 years is getting out in [...] TID, # 90 tab(s), Refills(s) 0, Pharmacy: [facility]/pharmacy #[id number], 156.5, cm, 06/22/24 10:23:00 EST, Height/Length [...] A Day Women 50 Plus Potassium Chloride (Xag-Awyq-Yza 10) 10 mEq oral tablet, extended release, [...] virus vaccine, inactivated 05/08/2022 Recorded SARS-CoV-2 (COVID-19) mRNAMUL.ORD![id number] 05/08/2022 Recorded SARS-CoV-2 (COVID-19) mRNA BNT-162b2 vax 07/18/2021 Recorded SARS-CoV-2 (COVID-19) mRNA BNT-162b2 vax 12/04/2020 Recorded SARS-CoV-2 (COVID-19) mRNA BNT-162b2 vax 11/13/2020 Recorded influenza virus vaccine, inactivated 04/28/2020 Recorded pneumococcal 13-valent vaccine 09/28/2019 Recorded influenza virus vaccine, inactivated 06/06/2019 Recorded influenza virus vaccine, inactivated 05/31/2018 Recorded influenza virus vaccine, inactivated 06/06/2017 RecordedWVUMedicine Barnesville HospitalComment on above:Result Comment: Electronically Signed By: Nida Saunders\.br\Date and Time Signed: 06/22/24 10:54 ESTProvider Letteron 05-13-2037Zlphcgfr LetterProvider Letter June 22, [address]PE [address] [place] [id number] : 1955 To Whom It May Concern, Please excuse above patient from work due to medical Date of Illness: From: _06-14-24 To: _06-23-24 May Return to Work On:06-28-24 Restrictions: _ Comments: _ Sincerely, [place] [address] QjpaeoAwtdniChillicothe Hospital Medicine Office/Clinic Noteon 92-29-5484Ryshjh Medicine Office/Clinic NoteFami Medicine Office/Clinic Note Chief [...] A Day Women 50 Plus Potassium Chloride (Efl-Aqby-Jdv 10) 10 mEq oral tablet, extended release, [...] virus vaccine, inactivated 05/08/2022 Recorded SARS-CoV-2 (COVID-19) mRNAMUL.ORD![id number] 05/08/2022 Recorded SARS-CoV-2 (COVID-19) mRNA BNT-162b2 vax 07/18/2021 Recorded SARS-CoV-2 (COVID-19) mRNA BNT-162b2 vax 12/04/2020 Recorded SARS-CoV-2 (COVID-19) mRNA BNT-162b2 vax 11/13/2020 Recorded influenza virus vaccine, inactivated 04/28/2020 Recorded pneumococcal 13-valent vaccine 09/28/2019 Recorded influenza virus vaccine, inactivated 06/06/2019 Recorded influenza virus vaccine, inactivated 05/31/2018 Recorded influenza virus vaccine, inactivated 06/06/2017 RecordedNoProMedica Bay Park HospitalComment on above:Result Comment: Electronically Signed By: Nida Saunders\.br\Date and Time Signed: 03/15/24 15:36 EDTProvider Letteron 17-70-2121Kvjqraar LetterProvider Letter March 15, [address]PE [address] [place] [id number] : 1955 To Whom It May Concern, Please excuse above patient from work. Date of Appointment: 03/15/2024 May Return to Work On: 03/16/2024 Restrictions: None. Comments: Patient was seen and treated for symptoms in office today. Sincerely, Family Medicine [address] [address] LvshjgTzgypzWVUMedicine Barnesville HospitalPre-Visit Planningon 83-13-5876Ntp-Visit PlanningPre-Visit Planning From: Mague Landa To: Nida Saunders; Sent: 12/19/2023 15:58:45 EDT Subject: Pre-Visit Planning Due Date/Time: 12/19/2023 15:58:00 EDT Caller Name: TOMASZ PEPE; Caller Number: H Dc Nida. During a pre-visit planning chart review, [...] H Class 2 severe obesity with serious comorbidity-HxherqnvmenpRtyehj495 [facility] Medicine Office/Clinic Noteon 01-05-2024 Family Medicine [...] A Day Women 50 Plus Potassium Chloride (Qci-Oref-Hlk 10) 10 mEq oral tablet, extended release, [...] virus vaccine, inactivated 05/08/2022 Recorded SARS-CoV-2 (COVID-19) mRNAMUL.ORD![id number] 05/08/2022 Recorded SARS-CoV-2 (COVID-19) mRNA BNT-162b2 vax 07/18/2021 Recorded SARS-CoV-2 (COVID-19) mRNA BNT-162b2 vax 12/04/2020 Recorded SARS-CoV-2 (COVID-19) mRNA BNT-162b2 vax 11/13/2020 Recorded influenza virus vaccine, inactivated 04/28/2020 Recorded pneumococcal 13-valent vaccine 09/28/2019 Recorded influenza virus vaccine, inactivated 06/06/2019 Recorded influenza virus vaccine, inactivated 05/31/2018 Recorded influenza virus vaccine, inactivated 06/06/2017 RecordedNoProMedica Bay Park HospitalComment on above:Result Comment: Electronically Signed By: Nida Saunders\.br\Date and Time Signed: 01/05/24 10:56 EDTProvider Letteron 63-33-2870Ciszzjuq Letter [address] [place] [address] January 05, [address] PEPE [address] [place] [phone] : 1955 To Whom It May Concern, Please consider moving the above named patient off of the [employer] job. The repetitive pushingof the pedal and twisting at the waist is causing severe pain to her right hip. If you have any questions regarding this request, please do not hesitate to call my office. Thank you. Sincerely, EDISON River[facility] HospitalAmbulatory Visit Summaryon 35-61-1902Emgmjcpexs Visit Summary TOMASZ PEPE :1955 Visit Date:12/22/2023 [...] Women 50 Plus) potassium chloride (Potassium Chloride (Ilj-Yeqf-Oyg 10) 10 mEq oral tablet, extended release) simvastatin (simvastatin 40 mg Tab) ubiquinone (CoQ10) verapamil (verapamil 120 mg Cap-ER) Procedures Performed None. Discharge Vitals Heart Rate (Peripheral) 86 Respiratory Rate 18 Blood Pressure 128/74 Height 156.5 cm Height 62 in Weight 94.2 kg Weight 207.24 lb BMI 38.46 What to do next Scheduled Follow-Up Appointments November. 2024 8:00 AM EDT Where: [facility] CenterCHEMISTRYOrdered By: SYSTEM SYSTEM on 593459-ksadptrbiskxoa D3 [Mass/Vol]37.1 ng/fBJtpwlx39.0 - 100.0 ng/mLRemisol ChemAlbumin [Mass/Vol]3.8 g/dLNormal3.3 - 5.0 gm/dLRemisol ChemAlbumin/Globulin [Mass ratio]1.3 {ratio} Normal1.1 - 2.2Remisol ChemALP [Catalytic activity/Vol]68 [iU]/yJpqety71 - 98 Int._Unit/LRemisol ChemALT No additional P-5'-P [Catalytic activity/Vol]26 [iU]/dNormal6 - 46 Int._Unit/LRemisol ChemAnion gap [Moles/Vol]11 mmol/LNormal6 - 16 mEq/LRemisol ChemAST [Catalytic activity/Vol]21 [iU]/dNormal5 - 43 Int._Unit/LRemisol ChemBilirubin [Mass/Vol]0.4 mg/dLNormal0.0 - 1.1 mg/dLRemisol ChemCalcium [Mass/Vol]9.2 mg/dLNormal8.9 - 11.1 mg/dLRemisol ChemChloride [Moles/Vol]105 mmol/LEfpqcz857 - 111 mmol/LRemisol ChemCholesterol [Mass/Vol]167 mg/fDZftmnm099 - 200 mg/dLRemisol ChemCholesterol in HDL [Mass/Vol]46 mg/dL Invalid Interpretation CodeRemisol ChemComment on above:Result Comment: '>= 60 LOW RISK' '<= 40 HIGH RISK'Cholesterol in LDL [Mass/Vol]100 mg/dLNormal<=129mg/dLRemisol ChemCholesterol in VLDL [Mass/Vol]32 mg/dLNormal7 - 40 mg/dLRemisol ChemCO2 [Moles/Vol]29 mmol/NFzyovj73 - 31 mmol/LRemisol ChemCreatinine [Mass/Vol]0.8 mg/dLNormal0.5 - 1.3 mg/dLRemisol BngzjYFU98 mL/min/1.73 a6Ixucyg>=59mL/min/1.73 j0Yoluawi ChemGlobulin (S) [Mass/Vol]3.0 g/dLNormal1.4 - 4.0 gm/dLRemisol Chem Glucose [Mass/Vol]125 mg/oFZxnhva18 - 199 mg/dLRemisol ChemPotassium [Moles/Vol] 4.0 mmol/LNormal3.5 - 5.3 mmol/LRemisol ChemProtein [Mass/Vol]6.8 g/dLNormal6.0 - 7.8 gm/dLRemisol ChemSodium [Moles/Vol]141 mmol/VLuslqb581 - 145 mmol/LRemisol ChemTriglyceride [Mass/Vol]162 mg/dLHigh<=149mg/dLRemisol ChemTSH Qn1.02 m[IU]/LNormal0.34 - 5.60 mcIU/mLRemisol ChemUrea nitrogen [Mass/Vol]20 mg/dL Normal5 - 21 mg/dLRemisol ChemUrea nitrogen/Creatinine [Mass ratio]25 mg/mgHigh 10 - 20Remisol ChemCMPon 40-15-2466Fgkyfwm [Mass/Vol]3.8 g/dLNormal3.3-5.0[facility] HospitalComment on above:Performed By: #### [id number] #### [facility] [address], [place] [address]Guotdmo/Globulin (S) [Mass conc ratio]1.0Rtaooy4.1-2.2FOhioHealth Marion General HospitalComment on above:Performed By: #### [id number] #### [facility] [address], [place] [address]ITM [Catalytic activity/Vol]68 Int._Unit/VMgtzqa63-42NjfijdFort Hamilton HospitalComment on above:Performed By: #### [id number] #### [facility] [address], [place] [address]BKQ No additional P-5'-P [Catalytic activity/Vol]26 Int._Unit/L Normal6-46[facility] HospitalComment on above:Performed By: #### [id number] #### [facility] [address], [place] [address]Ybpbb gap [Moles/Vol]11 mmol/LNormal6-16[facility] HospitalComment on above:Performed By: #### [id number] #### [facility] [address], [place] [address]VCN [Catalytic activity/Vol]21 Int._Unit/LNormal5-43[facility] HospitalComment on above:Performed By: #### [id number] #### [facility] [address], [place] [address]Mdckrtwij [Mass/Vol]0.4 mg/dLNormal0.0-1.1FOhioHealth Marion General HospitalComment on above:Performed By: #### [id number] #### [facility] [address], [place] [address]Fbvvsbj [Mass/Vol]9.2 mg/dLNormal8.9-11.1FOhioHealth Marion General HospitalComment on above:Performed By: #### [id number] #### [facility] [address], [place] [address] [Moles/Vol]105 mmol/JWbecfz576-654WlcukoFort Hamilton HospitalComment on above:Performed By: #### [id number] #### [facility] [address], [place] [address]XR6 [Moles/Vol]29 mmol/XShdnqx13-70XeozodFort Hamilton Hospital Comment on above:Performed By: #### [id number] #### [facility] [address], [place] [address]Iuxapitogo [Mass/Vol]0.8 mg/dLNormal0.5-1.3FOhioHealth Marion General HospitalComment on above:Performed By: #### [id number] #### [facility] [address], [place] [address]Oaqdplos (S) [Mass/Vol]3.0 g/dLNormal1.4-4.0[facility] HospitalComment on above:Performed By: #### [id number] #### [facility] [address], [place] [address]Nzjgxdl [Mass/Vol]125 mg/bCKdrmls77-611LqdtxeFort Hamilton HospitalComment on above:Performed By: #### [id number] #### [facility] [address], [place] [address]Yvwwdurbn [Moles/Vol]4.0 mmol/LNormal3.5-5.3FOhioHealth Marion General HospitalComment on above:Performed By: #### [id number] #### [facility] [address], [place] [address]Aiaooim [Mass/Vol]6.8 g/dLNormal6.0-7.8[facility] HospitalComment on above:Performed By: #### [id number] #### [facility] [address], [place] [address]Fpjeby [Moles/Vol]141 mmol/TSwhsci431-372ThosszFort Hamilton HospitalComment on above:Performed By: #### [id number] #### [facility] [address], [place] [address]Cezm nitrogen [Mass/Vol]20 mg/dLNormal5-21[facility] HospitalComment on above:Performed By: #### [id number] #### [facility] [address], [place] [address]Hheg nitrogen/Creatinine [Mass ratio]25 No IxtvgYjnl99-98TqdxyxFort Hamilton HospitalComment on above:Performed By: #### [id number] #### [facility] [address], [place] [address]Rhrhlw Medicine Office/Clinic Noteon 88-70-4388Icfqll Medicine Office/Clinic NoteHPI Staff Tomasz is a [...] A Day Women 50 Plus Potassium Chloride (Jgl-Diem-Lvz 10) 10 mEq oral tablet, extended release, [...] Smokeless Tobacco Use:. Househol (more content not included)...NormalFort Hamilton HospitalComment on above:Result Comment: Electronically Signed By: Nida Saunders\.trell\Date and Time Signed: 12/22/23 10:49 EDTLipid Panelon 80-43-9359Rabislzxxrv [Mass/Vol]167 mg/rOLbawca151-386GddqyyFort Hamilton HospitalComment on above: Performed By: #### [id number] #### [facility] [address], [place] [address]Bbjlfxpjhpi in HDL [Mass/Vol]46 mg/dLInvalid Interpretation CodeFort Hamilton HospitalComment on above:Result Comment: '>= 60 LOW RISK' '<= 40 HIGH RISK'Performed By: #### [id number] #### [facility] [address], [place] [address]Pppyiudxgmr in LDL [Mass/Vol]100 mg/dLNormal<=129[facility] HospitalComment on above:Performed By: #### [id number] #### [facility] [address], [place] [address]Bbzwhnvdqmt in VLDL [Mass/Vol]32 mg/dLNormal7-40[facility] HospitalComment on above:Performed By: #### [id number] #### [facility] [address], [place] [address]Dftkdyciabkm [Mass/Vol]162 mg/dLHigh<=149[facility] HospitalComment on above:Performed By: #### [id number] #### [facility] [address], [place] [address]Uwq-Tiykl Planningon 17-73-0377Kbx-Visit Planning From: Mague Landa To: Nida Saunders; [...] feel free to contact me at extension [phone]. Thank you! Mague Landa LPN From: Nida Saunders To: Mague Landa Catherine; Sent: 12/22/2023 08:59:13 EDT Subject: RE: Pre-Visit Planning Caller Name: TOMASZ PEPE; Caller Number: H Chronic kidney disease stage [id number] [facility] CenterPre-[facility] Planning From: Taylor Landaissa Catherine To: Nida [...] feel free to contact me at extension [phone]. Thank you! Mague Landa LPN From: Nida Saunders To: Mague Landa; Sent: 12/22/2023 08:58:26 EDT Subject: RE: Pre-Visit Planning Caller Name: TOMASZ PEPE; Caller Number: H [id number] [facility] Medical CenterTSHon 22-86-7420HDY Qn1.02 m[IU]/LNormal0.34-5.60[facility] HospitalComment on above:Performed By: #### [id number] #### [facility] [address], [place] [address]Iaapxlr D 25 Hydroxyon 336035-spjtfajkzomujz D3 [Mass/Vol]37.1 ng/tTBzyqxm42.0-100.0[facility] HospitalComment on above: Performed By: #### [id number] #### [facility] [address], [place] [address]nMLRra 71-14-1818mAMU28 mL/min/1.73 z2Swdnpr>=59Fort [facility] HospitalComment on above:Order Comment: Order added by Discern Expert. Performed By: #### [id number] #### [facility] [address], [place] [address]Aeehrvfxxe Visit Summaryon 31-52-0840Fnjqrkaddu Visit Summary TOMASZ PEPE :1955 Visit Date:12/04/2023 [...] Women 50 Plus) potassium chloride (Potassium Chloride (Taq-Earg-Kmg 10) 10 mEq oral tablet, extended release) simvastatin (simvastatin 40 mg Tab) ubiquinone (CoQ10) verapamil (verapamil 120 mg Cap-ER) Procedures Performed None. Discharge Vitals Heart Rate (Peripheral) 78 Respiratory Rate 16 Blood Pressure 136/78 Height 61 in Height 156 cm Weight 210.54 lb Weight 95.7 kg BMI 39.32 What to do next Scheduled Follow-Up Appointments Friday 10:00 AM EDT With: Nida Saunders Where: [facility] [address] [address]- \.br\ Medications\.br\ What How Much When Why [...] 50 Plus)\.br\ Unchanged potassium chloride (Potassium Chloride (Ltc-Oxrx-Rxz 10) 10 mEq oral tablet, extended release) [...] allthe clothing above your waist.\.br\ 2. \.br\ insole presser front of a mirror in a room [...] your other breast.\.br\ 9. \.br\ Sit or automatic i threading machine feeder the tub or shower .\.br\ 10. \.br\ [...] provider.\.br\ Document Revised: 05/28/2022 Document Reviewed: 05/09/2022 [employer] Patient Education ? 2022 [place].\.br\[facility] Medicine Office/Clinic Noteon 71-88-0444Dqtrzu Medicine Office/Clinic NoteChief Complaint Medicare Wellness Visit [...] of clutter to prevent tripping and/or falling. [place] Advance Directives reviewed. Patient states she does [...] been ordered with orders faxed to [facility] per patient request, patient aware she needs [...] been ordered with orders faxed to [facility] per patient request, patient aware she needs to call TB to schedule. Advised no deodorant, sprays or lotions. 4. Colon cancer screening (Z12.11: Encounter for screening for malignant neoplasm of colon) Denies concerns with constipation and/or rectal bleeding. Denies family history of Colon Cancer Pt declines interest in scheduling a colonoscopy screening, accepting of Cologuard testing. Reviewed process (more content not included)... [facility] HospitalComment on above:Result Comment: Electronically Signed By: Nida Saunders\.br\Date and Time Signed: 12/04/23 12:18 EDT\.br\Electronically Co-Signed By: Brittany Gee LPN\.br\Date and Time Co- Signed: 12/04/23 12:11 EDTFormson 98-09-9489Bhmcx [id number]#1.00TIFFNoProMedica Bay Park HospitalPatient Educationon 47-35-3353Lmajoeq EducationNutrition DASH Eating Plan DASH stands for [...] condiments Herbs. Spices. Seasoni (more content not included)...[facility] Centercreenson 87-22-2166Saynfvl [id number]#1.00TIFFNormSt. Mary's Medical CenterAmbulatory Visit Summaryon 01-96-4120Eelwmwqsqs Visit Summary TOMASZ PEPE :1955 Visit Date:11/10/2023 [...] mg tab dosepak) potassium chloride (Potassium Chloride (Anb-Gteg-Ghb 10) 10 mEq oral tablet, extended release) simvastatin (simvastatin 40 mg Tab) verapamil (verapamil 120 mg Cap-ER) Discharge Vitals Heart Rate (Peripheral) 76 Respiratory Rate 18 Blood Pressure 122/82 Height 156.5 cm Height 62 in Weight 94.50 kg Weight 207.9 lb BMI 38.58 What to do next Scheduled Follow-Up Appointments November. 2023 8:00 AM EDT Where: [facility] Medicine Office/Clinic Noteon 81-59-9549Jofhvv Medicine Office/Clinic NoteHPI Staff Tomasz is a [...] she wants medication for. Her is in intermediate and it suppose to be getting released [...] day(s), # 90 tab(s), Refills(s) 3, [id number], 156.5, cm, 11/10/23 10:10:00 EDT, Height/Length Dosing, 94.5, kg, 11/10/23 10:10:00 EDT, Weight Dosing 3. Non-smoker (Z78.9: Other specified health status) continue not smoking Ordered: meloxicam, 15 mg = 1 tab(s), Oral, Daily, # 30 tab(s), Refills(s) 0, [id number], 156.5, cm, 10/20/23 9:38:00 EDT, Height/Length Dosing, 94.6, kg, 10/20/23 9:38:00 EDT, Weight Dosing meloxicam, 15 mg = 1 tab(s), Oral, Daily, X 90 day(s), # 90 tab(s), Refills(s) 3, [id number], 156.5, cm, 11/10/23 10:10:00 EDT, Height/Length Dosing, 94.5, kg, 11/10/23 10:10:00 EDT, Weight Dosing Orders: methylPREDNISolone, = 1 packet(s), Oral, Once, as directed on package labeling, # 21 tab(s), Refills(s) 0, [id number], 156.5, cm, 11/10/23 10:10:00 EDT, Height/Length [...] dosepak, 1 packet(s), Oral, Once Potassium Chloride (Ihx-Pesz-Ayd 10) 10 mEq oral tablet, extended release, [...] virus vaccine, inactivated 05/08/2022 Recorded SARS-CoV-2 (COVID-19) mRNAMUL.ORD![id number] 05/08/2022 Recorded SARS-CoV-2 (COVID-19) mRNA BNT-162b2 vax 07/18/2021 Recorded SARS-CoV-2 (COVID-19) mRNA BNT-162b2 vax 12/04/2020 Recorded SARS-CoV-2 (COVID-19) mRNA BNT-162b2 vax 11/13/2020 Recorded influenza virus vaccine, inactivated 04/28/2020 Recorded pneumococcal 13-valent vaccine 09/28/2019 Recorded influenza virus vaccine, inactivated 06/06/2019 Recorded influenza virus vaccine, inactivated 05/31/2018 Recorded influenza virus vaccine, inactivated 06/06/2017 RecordedWVUMedicine Barnesville HospitalComment on above:Result Comment: Electronically Signed By: Nida Saunders\Date and Time Signed: 11/10/23 10:20 EDTAmbulatory Visit Summary on 71-64-1415Wvjovdcmhf Visit Summary TOMASZ PEPE :1955 Visit Date:10/20/2023 [...] 4 mg Tab) potassium chloride (Potassium Chloride (Eqb-Pddj-Jvy 10) 10 mEq oral tablet, extended release) simvastatin (simvastatin 40 mg Tab) verapamil (verapamil 120 mg Cap-ER) Discharge Vitals Heart Rate (Peripheral) 80 Respiratory Rate 18 Blood Pressure 116/78 Height 156.5 cm Height 62 in Weight 94.6 kg Weight 208.12 lb BMI 38.62 What to do next Scheduled Follow-Up Appointments Friday 10:00 AM EDT With: Nida Saunders Where: [facility] Medicine Office/Clinic Noteon 89-64-0133Qydxko Medicine Office/Clinic NoteHPI Staff Tomasz is a 68 year old female presenting to [facility] care Establish Care: History: Any previous diagnosis: [...] sciatic pain. will order x ray at [facility] and meloxicam with medrol dose pack. RTC [...] Daily, # 30 tab(s), Refills(s) 0, Pharmacy: [facility]/pharmacy #[id number], 156.5, cm, 10/20/23 9:38:00 EDT, Height/Length Dosing, 94.6, kg, 10/20/23 9:38:00 EDT, Weight Dosing methylPREDNISolone, = 1 packet(s), Oral, As Directed, as directed on package labeling, X 6 day(s), # 21 tab(s), Refills(s) 0, Pharmacy: [facility]/pharmacy #[id number], 156.5, cm, 10/20/23 9:38:00 EDT, Height/Length Dosing, 94.6, kg, 10/20/23 9:38:00 EDT, Weight Dosing 4. Non-smoker (Z78.9: Other specified health status) continue not smoking Ordered: meloxicam, 15 mg = 1 tab(s), Oral, Daily, # 30 tab(s), Refills(s) 0, [id number], 156.5, cm, 10/20/23 9:38:00 EDT, Height/Length Dosing, 94.6, kg, 10/20/23 9:38:00 EDT, Weight Dosing methylPREDNISolone, = 1 packet(s), Oral, As Directed, as directed on package labeling, X 6 day(s), # 21 tab(s), Refills(s) 0, [id number], 156.5, cm, 10/20/23 9:38:00 EDT, Height/Length [...] mg= 1 tab(s), Oral, Daily Potassium Chloride (Cng-Jxoz-Wsy 10) 10 mEq oral tablet, extended release, [...] virus vaccine, inactivated 05/08/2022 Recorded SARS-CoV-2 (COVID-19) mRNAMUL.ORD![id number] 05/08/2022 Recorded SARS-CoV-2 (COVID-19) mRNA BNT-162b2 vax 07/18/2021 Recorded SARS-CoV-2 (COVID-19) mRNA BNT-162b2 vax 12/04/2020 Recorded SARS-CoV-2 (COVID-19) mRNA BNT-162b2 vax 11/13/2020 Recorded influenza virus vaccine, inactivated 04/28/2020 Recorded pneumococcal 13-valent vaccine 09/28/2019 Recorded influenza virus vaccine, inactivated 06/06/2019 Recorded influenza virus vaccine, inactivated 05/31/2018 Recorded influenza virus vaccine (more content not included)...[facility] HospitalComment on above:Result Comment: Electronically Signed By: Nida Saunders\.br\Date and Time Signed: 10/20/23 11:15 EDTGLYCOHEMOGLOBIN A1Con [id number] RECOMMENDATIONADA THERAPEUTIC TARGET 6.0 - 7.0 ACTION SUGGESTED > 7.0NoBrown Memorial HospitalComment on above:Performed By: #### A1C #### [facility] [address] [place] [address] Dada KarenGlucose [Mass/Vol]120 mg/dLNoBrown Memorial HospitalComment on above:Performed By: #### A1C #### [facility] [address] [place] [address] Dada QkjhhRgS2l (Bld) [Mass fraction]5.8 %Normal<=6.0[facility] Comment on above:Performed By: #### A1C #### [facility] [address] [place] [address] Dada KarenLIPID PROFILEon 40-88-7861NIZQ-HDL RATIO NORMSEE BELOWOhioHealth Arthur G.H. Bing, MD, Cancer CenterComment on above:Result Comment: 3.3 - 4.4 LOW RISK 4.4 - 7.1 AVERAGE RISK 7.1 - 11.0 MODERATE RISK >11.0 HIGH RISKPerformed By: #### CMP, LIPID, TSH #### [facility] [address] [id number] Dada KarenCholesterol [Mass/Vol]176 mg/dLNormal<=200[facility] Comment on above:Performed By: #### CMP, LIPID, TSH #### [facility] [address] [id number] Dada KarenCholesterol in HDL [Mass/Vol]61 mg/dLOhioHealth Arthur G.H. Bing, MD, Cancer Center Comment on above:Performed By: #### CMP, LIPID, TSH #### [facility] [address] [id number] Dada KarenCholesterol in LDL [Mass/Vol]89.6 mg/dLOhioHealth Arthur G.[facility]. [facility], Cancer Center Comment on above:Performed By: #### CMP, LIPID, TSH #### [facility] [address] [address] Dada KarenCholesterol.total/Cholesterol in HDL [Mass ratio]2.9 {ratio}Normal The [facility] HealthComment on above:Performed By: #### CMP, LIPID, TSH #### [facility] [address] [id number] Dada KarenHDL NORMAL> or = 60 mg/dl - LOW CARDIOVASCULAR RISK <40 mg/dl - HIGH CARDIOVASCULAR RISKOhioHealth Arthur G.H. Bing, MD, Cancer CenterComment on above:Performed By: #### CMP, LIPID, TSH #### [facility] [address] [id number] Dada KarenLDL CALC NORMALSEE BELOWOhioHealth Arthur G.H. Bing, MD, Cancer CenterComment on above: Result Comment: <100 mg/dl OPTIMAL 100 - 129 mg/dl NEAR OR ABOVE OPTIMAL 130 - 159 mg/dl BORDERLINE HIGH 160 - 189 mg/dl HIGH >190 mg/dl VERY HIGHPerformed By: #### CMP, LIPID, TSH #### [facility] [address] [id number] Dada KarenTriglyceride [Mass/Vol]127 mg/dLNormal<=150[facility] Comment on above:Performed By: #### CMP, LIPID, TSH #### [facility] [address] [id number] Dada KarenVLDL CALC25.4 mg/dLNormalThe [facility] HealthComment on above: Performed By: #### CMP, LIPID, TSH #### [facility] [address] [place] [address] Dada KarenMICROALBUMIN, RAND URon 58-60-5782kNIN<1.3Normal<=30.0The [facility] HealthComment on above:Performed By: #### MALBR #### [facility] [address] [address] Dada KarenPROF 14(COMP METB)on 56-53-2605Cyjvsgo [Mass/Vol]3.8 g/dLNormal 3.5-5.0The [facility] HealthComment on above:Performed By: #### CMP, LIPID, TSH #### [facility] [address] [place] [address] Dada KarenAlbumin/Globulin [Mass ratio]0.8 {ratio}NormalKettering Health [facility] Comment on above:Performed By: #### CMP, LIPID, TSH #### [facility] [address] [place] [address] Dada KarenALP [Catalytic activity/Vol]81 U/JConioe97-685HufKettering Health Dayton Comment on above:Performed By: #### CMP, LIPID, TSH #### [facility] [address] [place] [address] Dada KarenALT [Catalytic activity/Vol]31 U/LNormal9-52[facility] Comment on above:Performed By: #### CMP, LIPID, TSH #### [facility] [address] [place] [address] Dada KarenAnion gap [Moles/Vol]10.1 mmol/LNormalKettering Health DaytonComment on above:Performed By: #### CMP, LIPID, TSH #### [facility] [address] [place] [address] Dada KarenAST [Catalytic activity/Vol]21 U/KNpspab31-36Xgv [facility] Comment on above:Performed By: #### CMP, LIPID, TSH #### [facility] [address] [address] Dada KarenBilirubin [Mass/Vol]0.4 mg/dLNormal0.2-1.3[facility] Comment on above:Performed By: #### CMP, LIPID, TSH #### [facility] [address] [address] Dada KarenCalcium [Mass/Vol]9.2 mg/dLNormal8.4-10.2[facility] Comment on above:Performed By: #### CMP, LIPID, TSH #### [facility] [address] [address] Dada KarenChloride [Moles/Vol]103 mmol/NMzjair10-335Slj [facility] Comment on above:Performed By: #### CMP, LIPID, TSH #### [facility] [address] [place] [address] Dada KarenCO2 [Moles/Vol]30.8 mmol/LCritically high22.0-30.0[facility] HealthComment on above:Performed By: #### CMP, LIPID, TSH #### [facility] [address] [place] [address] Dada KarenCreatinine [Mass/Vol]0.89 mg/dLNormal0.52-1.04[facility] Comment on above:Performed By: #### CMP, LIPID, TSH #### [facility] [address] [address] Dada KarenEGFR-AF LATVIAN>60Normal>=60The [facility] HealthComment on above: Performed By: #### CMP, LIPID, TSH #### [facility] [address] [place] [address] Dada KarenEGFR-NON AF LATVIAN>60Normal>=60The [facility] HealthComment on above:Performed By: #### CMP, LIPID, TSH #### [facility] [address] [place] [address] Dada KarenGlobulin (S) [Mass/Vol]4.7 g/dLNormalThe [facility] HealthComment on above:Performed By: #### CMP, LIPID, TSH #### [facility] [address] [place] [address] Dada KarenGlucose [Mass/Vol]115 mg/dLCritically dgmn87-081XoeKettering Health DaytonComment on above:Performed By: #### CMP, LIPID, TSH #### [facility] [address] [place] [address] Dada KarenPotassium [Moles/Vol]3.9 mmol/LNormal3.4-5.0[facility] Comment on above:Performed By: #### CMP, LIPID, TSH #### [facility] [address] [place] [address] Dada KarenProtein [Mass/Vol]8.5 g/dLCritically high6.1-8.2[facility] DaytonComment on above:Performed By: #### CMP, LIPID, TSH #### [facility] [address] [place] [address] Dada KarenSodium [Moles/Vol]140 mmol/MFvxxsm989-016Wuw [facility] Comment on above:Performed By: #### CMP, LIPID, TSH #### [facility] [address] [place] [address] Dada KarenUrea nitrogen [Mass/Vol]18.0 mg/dLCritically high7.0-17.0[facility] DaytonComment on above:Performed By: #### CMP, LIPID, TSH #### [facility] [address] [place] [address] Dada KarenUrea nitrogen/Creatinine [Mass ratio]20.2 mg/[facility] CenterComment on above:Performed By: #### CMP, LIPID, TSH #### [facility] [address] [place] [address] Dada KarenTSHon 86-26-5146HFE6.696 uIU/mLNormal0.470-4.680[facility] DaytonComment on above:Performed By: #### CMP, LIPID, TSH #### [facility] [address] [place] [address] Dada KarUniversity Hospitals Lake West Medical CenterComment on above:Result Comment: <0.34 UIU/ml HYPERTHYROID 0.34-5.60 UIU/ml EUTHYROID >5.60 UIU/ml HYPOTHYROIDPerformed By: #### CMP, LIPID, TSH #### [facility] [address] [place], [place] [address] Dada Umaña Vital Signs Date TimeVital SignValuePerforming XwluckwdlHnjoxkmv14-53-6541 13:49-0400Body vxzyba658.56 cmBety Chung DESK OPERATOR Work Phone: [phone]10-08-2025 13:49-0400 Body mass index (BMI) [Ratio]36 kg/u0JaimubyrBety Chung DESK OPERATOR Work Phone: [phone]10-08-2025 13:49-0400 Body mzvxvddfvzo15.4 [degF]Bety Chung DESK OPERATOR Work Phone: [phone]10-08-2025 13:49-0400 Body .25 kgBety Chung DESK OPERATOR Work Phone: [phone]10-08-2025 13:49-0400 Diastolic blood cfrbbsvy70 mm[Hg]Bety Chung DESK OPERATOR Work Phone: [phone]10-08-2025 13:49-0400 Heart rate73 /minBety Chung DESK OPERATOR Work Phone: [phone] [place], [place] [address]10-08-2025 13:49-0400 SaO2% (BldA) [Mass fraction]97 %Bety Chung DESK OPERATOR Work Phone: [phone]10-08-2025 13:49-0400 Systolic blood pgwgscif561 mm[Hg]Bety Chung APRN Work Phone: [phone] Encounters Encounter DateEncounter TypeCare ProviderFacilityStart: 04-27-2025 End: 46-96-6560pmglwgvbepDgnrepzt Rohrbacher DESK OPERATOR Work Phone: [facility] Work Phone: Start: 04-27-2025 End: 58-12-9009Pedfbwf encounter procedureBety Chung DESK OPERATOR [facility] Work Phone: Start: 90-75-1271ethiqipsmlKmow L SchwabFacility:FT FM BellevueStart: 06-22-2024 End: 22-15-6699nemuatktkkTaug L SchwabFacility:FT FM BellevueStart: 03-15-2024 End: 95-21-9116vazjcsbinzDbil L SchwabFacility:FT FM BellevueStart: 03-11-2024 ambulatoryJodi L SchwabFacility:FT FM BellevueStart: 01-05-2024 End: 54-69-3076xpdwjfleraNauo L SchwabFacility:FT FM BellevueStart: 12-22-2023 End: 34-26-7876Tes Drop offJodi L Maile [facility] Start: 12-22-2023 End: 58-51-4701kgsnvhfrhdMatx L SchwabFacility:FTMCStart: 12-04-2023 End: 48-07-3955ovbsdvxiwwNhpn L SchwabFacility:FT FM BellevueStart: 11-10-2023 End: 62-21-4876nayelmevtoGsco L SchwabFacility:FT FM BellevueStart: 10-20-2023 End: 99-69-4172mlulxbpluvZgvk L SchwabFacility:FT FM BellevueStart: 10-09-2023 ambulatoryJodi L SchwabFacility:FT FM BellevueStart: 69-70-9844apkhuinsimNFQHDY ROSSFacility:K4Lnvhx: 12-04-2020 End: 93-89-0907zdmvudkjweKPLTUI ROSSFacility:B8Zjvjw: 11-13-2020 End: 62-88-8432vbdzijjkadBUFRPS ROSSFacility:H1 Procedures DateProcedureProcedure DetailPerforming ClinicianNone (qualifier value)Nida Maile Plan of Treatment DateCare ActivityDetailAuthorStart: 87-37-6422Uqpggzw referralS[facility] Work Phone: Comprehensive metabolic 2000 panel - Serum or Plasma [facility] CenterPatient referralShelby [facility] Hospital Work Phone: [facility] Immunizations Immunization DateImmunizationNotesCare HregoydnNsebyjac28-08-3226ampdxbsmk virus vaccine, unspecified formulationJodi Maile [phone]-MwdsyWestern [facility] Hospital 03-29-4826tlkhofjym virus vaccine, unspecified formulationJodi Maile [phone]-PnsadWestern Reserve Hospital 45-13-7365LNRH-CoV-2 (COVID-19) mRNAMUL.ORD!h50500Actj Maile [phone]-TqvmvWestern Reserve Hospital 94-71-7155ZBUT-CoV-2 (COVID-19) mRNA BNT-162b2 vaxJodi Maile [phone]-HvfxwWestern Reserve Hospital 08-28-4756IWDA-CoV-2 (COVID-19) mRNA BNT-162b2 vaxJodi Maile 192-2961Ncqjsc-BhvuxWestern Reserve Hospital 12-53-2243NFGZ-CoV-2 (COVID-19) mRNA BNT-162b2 vaxJodi Maile [phone]-GtikvWestern Reserve Hospital 38-90-1530fddjazqvk virus vaccine, unspecified formulationJodi Maile [phone]-QtvgrWestern Reserve Hospital 02-76-0816ibsafojxbwgn conjugate vaccine, 13 valentJodi Maile [phone]-RfiiwWestern Reserve Hospital 05-21-5143nqknnraxq virus vaccine, unspecified formulationJodi Maile [phone]-RuxndWestern Reserve Hospital 66-98-4601urezuwcdq virus vaccine, unspecified formulationJodi Maile 065-7866Qupalx-PsdhjWestern Reserve Hospital 73-21-1333bajojtfcu virus vaccine, unspecified formulationJodi Maile [phone]-DudqwWestern Reserve Hospital Payers DatePayer CategoryPayerPolicy [id number] Health [id number] [id number] [id number] 1960Self-pay [id number] 2.0.1.582783.3.57[id number] 2.840.1.955303.3.57[id number] 2.0.1.726630.3.57[id number] 2..1.001230.3.57[id number] 2.840.1.557008.3.57[id number] 2.840.1.208752.3.57[id number] 2.840.1.448470.3.57[id number] 2.840.1.878272.3.57[id number] 2.16.840.1.932159.3.57[id number] 2.16.840.1.348917.3.57[id number] 2.16.840.1.502658.3.57[id number] 2.16.840.1.110484.3.57[id number] 2.16.840.1.860589.3.57[id number] 2.16.840.1.080832.3.57[id number] 2..840.1.549496.3.579.2.727Private Health InsuranceCincinnati Children's Hospital Medical [facility] [id number] Social History DateTypeDetailFacilityStart: 12-22-2023 End: 51-71-4312Ckxssmt smoking statusNever smoked tobacco (finding)[facility] BellevueTobacco smoking statusNeverSelect Medical Special[facility] Medicine BellevueSex Assigned At [facility] HospitalexFemale (finding)[facility] Hospitaltart: 09-05-7546Mae Assigned At [facility] Hospital Discharge instructions 04-27-2025 Note Date & QmgeDnwbYvlkixni96-59-9987 Hospital Discharge instructionsAmbulatory Orders* Referral to Gastroenterology Time Frame: 04/27/25, Location: None Selected [facility] Work Phone: Evaluation note 04-20-2025 Note Date & RfciPbcpZnsyrcmh93-92-6228 Evaluation note* Diagnosis Onset Date Resolution Status Admit Date Diabetes acuteOctober 2024 1:44pmHigh cholesterolacuteOctober 2024 1:44pm HypertensionacuteOctober 2024 1:44pmScreening for colon canceracuteOct2024 1:44pm [facility] Work Phone: Evaluation + Plan note Note Date & TypeNoteFacilityEvaluation + Plan note Future Appointments Appointment Date:12/02/2024 08:00:00 AM Scheduled Provider: Location:[facility] Appointment Type: Medicare Wellness Subsequent [facility] Hospital course Narrative Note Date & TypeNoteFacilityHospital course Narrative No data available for this section [facility] Hospital Discharge instructions Note Date & TypeNoteFacilityHospital Discharge instructions No data available for this section [facility] Progress note Note Date & TypeNoteFacilityProgress note No data available for this section [facility] Summary Purpose Family History Relationship Condition [...] section and content) DATE CREATED AUTHOR 04/14/2021 [facility] DATE CREATED AUTHOR AUTHOR'S ORGANIZ ATION 12/23/2023 [facility] DATE CREATED AUTHOR AUTHOR'S ORGANIZ ATION 06/23/2024 [facility] DATE CREATED AUTHOR AUTHOR'S ORGANIZ ATION 07/03/2024 [facility] Patient Care team informatio n (unrecognized section and content) Team Status: Active Member Role Status Dates Bety Chung APRN [employer] BPC DEVELOPER-C Primary Care Provider Active Team Status: Inactive Member Role Status Dates Bety Chung APRN [employer] BPC DEVELOPER-C Primary Care Provider Active Start: April 27, 2025 End: April 27, 2025Jennifer Rohrbacher , DESK OPERATOR [employer] BPC DEVELOPER-CAttending ProviderActive Start: April 27, 2025 End: April [...] BE BASED ON THE PRIMARY CLINICAL RECORDS. [employer] [facility]. provides no warranty or guarantee of the accuracy or completeness of information in this document.
[2025-05-21 09:59] LABS: Hematocrit 44.1 % (36.0-48.0); Hemoglobin 14.8 g/dL (12.0-16.0); Immature Granulocytes Abs Auto 0.01 10^3/uL (0.00-0.03); Immature Granulocytes Pct Auto 0.1 % (0.0-0.5); Lymphocytes Absolute Auto 2.2 10^3/uL (1.2-3.8); Mean Corpuscular HGB Conc 33.6 g/dL (29.9-35.2); Mean Corpuscular Hemoglobin 30.2 pg (26.7-34.0); Mean Corpuscular Volume 90.0 fL (81.0-99.0); Platelet Count 317 10^3/uL (150-450); Red Blood Count 4.90 10^6/uL (4.20-5.40); White Blood Count 7.1 10^3/uL (4.0-11.0)
[2025-05-21 11:06] LABS: Alanine Aminotransferase 42 U/L (14-59); Anion Gap 12.7; Aspartate Amino Transferase 27 U/L (15-37); Blood Urea Nitrogen 10.0 mg/dL (7.0-18.0); Calcium 8.8 mg/dL (8.5-10.1); Carbon Dioxide 29.5 mmol/L (21.0-32.0); Chloride 102 mmol/L (98-107); Estimated GFR (African America >60 (>=60 mL/min/1.73m^2); Estimated GFR (Non-African Ame >60 (>=60 mL/min/1.73m^2); Glucose 132 mg/dL (74-106); Potassium 3.2 mmol/L (3.5-5.1); Sodium 141 mmol/L (136-145)
[2025-05-21 11:07] LABS: Albumin Globulin Ratio 0.8; Albumin Level 3.3 g/dL (3.4-5.0); Alkaline Phosphatase 107 U/L (46-116); Cholesterol 201 mg/dL (<=200); Globulin 4.0 g/dL; HDL Cholesterol 55 mg/dL (40-60); TSH W/ REFLEX FT4 2.553 uIU/mL (0.358-3.740); Total Protein 7.3 g/dL (6.4-8.2); Triglycerides 130 mg/dL (<=150); VLDL CHOLESTEROL 26.0 mg/dL
== END 2025-05-21 09:39 | disposition home or self-care (01) ==
LOC: LAB 09:38
PROVIDERS: PCP Nurse Practitioner Family; Visit Provider Nurse Practitioner Family
DX: E78.00 Pure hypercholesterolemia, unspecified (principal); E11.9 Type 2 diabetes mellitus without complications; I10 Essential (primary) hypertension
CPT/HCPCS: 36415; 80053; 80061; 82043; 82570; 83036; 84443; 85025